=== PATIENT | male | born 1960 | race Caucasian/White ===

== ENCOUNTER 2018-09-07 14:54 | Outpatient (CLI) | payer OTHER | END 2018-09-07 14:55 | disposition home or self-care (01) | LOC: RT.S 14:54 | PROVIDERS: ATTEND Physician Assistant | DX: I10 Essential (primary) hypertension (principal); R00.8 Other abnormalities of heart beat | CPT/HCPCS: 93005 ==

== ENCOUNTER 2021-08-31 08:17 | Outpatient (CLI) | payer OTHER | END 2021-08-31 08:18 | disposition critical access hospital (66) | LOC: EMS 08:17 | DX: U07.1 COVID-19 (principal) | CPT/HCPCS: A0425; A0427 ==

== ENCOUNTER 2021-08-31 08:42 | Inpatient (IN) | payer OTHER ==
[2021-08-31] MEDS ORDERED: SODIUM CHLORIDE 0.9% 1,000 ML IV STA (09:01)
[2021-08-31] MEDS ORDERED: ALBUTEROL 1 PUFF INH STA (09:01)
--- NOTE | 2021-08-31 09:04 | ED Physician Documentation ---
History of Present Illness - Stated complaint Stated Complaint: RESP DISTRESS/C+ - Chief complaint Chief Complaint: Resp - History obtained from History obtained from: Patient, EMS - Additonal information Additional information: Patient comes emergency department chief complaint of shortness of breath and hypoxia at home. Patient was diagnosed with Covid 4 days ago and has been becoming increasingly symptomatic since. He states he developed a cough over the weekend and that his shortness of breath is worse today. He has a home pulse oximeter and has been monitoring his oxygen saturation. It is gotten lower lower area patient finally became concerned and called 911. Medics report that when they got there, the patient's room air sat was 80%. He was very responsive to oxygen, however, and on a nonrebreather mask, his come up to the mid to upper 90s. Patient states he is not vaccinated. He is willing to get monoclonal antibodies, oxygen, and fluids but does not want intubation or remd esivir. Patient states his only other medical problem is hypertension. No other complaints at this time. Review of Systems Ten Systems: 10 systems reviewed and negative Constitutional: reports: Chills, Myalgias, Fatigue. denies: Fever Eyes: reports: Reviewed and negative Ears: reports: Reviewed and negative Nose: reports: Reviewed and negative Throat: reports: Reviewed and negative Cardiac: reports: Reviewed and negative Respiratory: reports: Dyspnea, Cough GI: reports: Reviewed and negative : reports: Reviewed and negative Skin: reports: Reviewed and negative Musculoskeletal: reports: Reviewed and negative Neurologic: reports: Reviewed and negative Psychiatric: reports: Reviewed and negative Endocrine: reports: Reviewed and negative Immunocompromised: reports: Reviewed and negative PD PAST MEDICAL HISTORY - Present Medications Home Medications: Ambulatory Orders Medication Instructions Recorded Confirmed Albuterol 3 ml INH Q4H PRN 08/31/21 Benzonatate [Tessalon] 100 mg PO TID PRN 08/31/21 Budesonide [Pulmicort] 2 ml INH BID PRN 08/31/21 - Allergies Allergies/Adverse Reactions: Allergies Allergy/AdvReac Type Severity Reaction Status Date / Time No Known Drug Allergies Allergy Verified 08/31/21 09:02 PD ED PE NORMAL - Vitals Vital signs reviewed: Yes - General General: Alert and oriented X 3, No acute distress, Well developed/nourished - HEENT HEENT: Atraumatic, PERRL, EOMI, Moist mucous membranes - Neck Neck: Supple, no meningeal sign - Cardiac Cardiac: RRR, No murmur, Strong equal pulses - Respiratory Respiratory: No respiratory distress, Clear bilaterally - Abdomen Abdomen: Soft, Non tender, Non distended - Derm Derm: Normal color, Warm and dry, No rash - Extremities Extremities: No deformity, No edema - Neuro Neuro: Alert and oriented X 3, production sorter 2-12 intact, Normal speech, Other (grossly normal) - Psych Psych: Normal mood, Normal affect Results - Vitals Vitals: Oxygen O2 Source Non-rebreather mask Oxygen Flow Rate 15 - Labs Labs: Laboratory Tests 08/31/21 08/31/21 08/31/21 09:12 10:33 10:33 WBC 9.1 RBC 4.83 Hgb 14.1 Hct 41.9 L MCV 86.7 MCH 29.2 MCHC 33.7 RDW 13.1 Plt Count 231 MPV 10.6 Neut # (Auto) 8.1 H Lymph # (Auto) 0.4 L [place] # (Auto) 0.5 Eos # (Auto) 0.0 Baso # (Auto) 0.0 Absolute Nucleated RBC 0.00 Nucleated RBC % 0.0 Manual Slide Review Indicated PT INR Sodium 133 L Potassium 4.1 Chloride 94 L Carbon Dioxide 28 Anion Gap 11.0 BUN 17 Creatinine 0.8 Estimated GFR (MDRD) 98 Glucose 140 H Calcium 8.7 Total Bilirubin 0.9 AST 36 ALT 36 Alkaline Phosphatase 64 Total Protein 7.2 Albumin 3.7 Globulin 3.5 Albumin/Globulin Ratio 1.1 Lipase 59 H Nasal Adenovirus (PCR) NOT DETECTED Nasal B. parapertussis DNA (PCR) NOT DETECTED Nasal Coronavir 229E PCR NOT DETECTED Nasal Coronavir HKU1 PCR NOT DETECTED Nasal Coronavir NL63 PCR NOT DETECTED Nasal Coronavir OC43 PCR NOT DETECTED Nasal Enterovir/Rhinovir PCR NOT DETECTED Nasal Influenza B PCR NOT DETECTED Nasal Influenza A PCR NOT DETECTED Nasal Parainfluen 1 PCR NOT DETECTED Nasal Parainfluen 2 PCR NOT DETECTED Nasal Parainfluen 3 PCR NOT DETECTED Nasal Parainfluen 4 PCR NOT DETECTED Nasal RSV (PCR) NOT DETECTED Nasal B.pertussis DNA PCR NOT DETECTED Nasal C.pneumoniae (PCR) NOT DETECTED Amanuel Human Metapneumo PCR NOT DETECTED Nasal M.pneumoniae (PCR) NOT DETECTED Nasal SARS-CoV-2 (PCR) DETECTED A 08/31/21 10:33 WBC RBC Hgb Hct MCV MCH MCHC RDW Plt Count MPV Neut # (Auto) Lymph # (Auto) [place] # (Auto) Eos # (Auto) Baso # (Auto) Absolute Nucleated RBC Nucleated RBC % Manual Slide Review PT 13.1 H INR 1.2 Sodium Potassium Chloride Carbon Dioxide Anion Gap BUN Creatinine Estimated GFR (MDRD) Glucose Calcium Total Bilirubin AST ALT Alkaline Phosphatase Total Protein Albumin Globulin Albumin/Globulin Ratio Lipase Nasal Adenovirus (PCR) Nasal B. parapertussis DNA (PCR) Nasal Coronavir 229E PCR Nasal Coronavir HKU1 PCR Nasal Coronavir NL63 PCR Nasal Coronavir OC43 PCR Nasal Enterovir/Rhinovir PCR Nasal Influenza B PCR Nasal Influenza A PCR Nasal Parainfluen 1 PCR Nasal Parainfluen 2 PCR Nasal Parainfluen 3 PCR Nasal Parainfluen 4 PCR Nasal RSV (PCR) Nasal B.pertussis DNA PCR Nasal C.pneumoniae (PCR) Amanuel Human Metapneumo PCR Nasal M.pneumoniae (PCR) Nasal SARS-CoV-2 (PCR) PD MEDICAL DECISION MAKING - ED course Complexity details: reviewed results, re-evaluated patient, considered differential, d/w patient ED course: The patient looked surprisingly well for the fact that he was requiring 100% oxygen to keep his oxygen saturation in the low to mid 90s. Despite this, however, even taking the oxygen off to give the pt 4 puffs of albuterol, pt became immediately dyspneic and O2 sats dropped to low 80's. He was given a dose of Decadron in the ED. He was worked up with chest x-ray, respiratory PCR and labs. PCR was positive for SARScovi2. CXR showed diffuse infiltrates, most likely related to the covid. Doses of antibiotics were added to cover potential bacterial superinfection. I discussed the case with Dr. Paz, who agreed to admit the pt to his service. Departure - Departure Disposition: 66 [facility] DC/Xfer Clinical Impression: COVID-19, Hypoxia Condition: Serious Discharge Date/Time: 08/31/21 12:45
[2021-08-31] MEDS ORDERED: DEXAMETHASONE 10 MG/ML VIAL IV STA (09:06)
--- NOTE | 2021-08-31 09:36 | XRAY Report ---
PROCEDURE: Chest 1 View X-Ray INDICATIONS: Covid, hypoxia/shortness of breath TECHNIQUE: One view of the chest was acquired. COMPARISON: September 17, 2023 FINDINGS: SUPPORT DEVICES: None. LUNG/PLEURA: Moderate left and mild right, predominantly peripheral peripheral airspace opacities are seen with low lung volumes. No pleural effusion or pneumothorax. MEDIASTINUM: Prominence of the cardiac silhouette, partially exaggerated by technique. BONES/SOFT TISSUES: No acute abnormality. IMPRESSION: 1.Bilateral, predominantly peripheral airspace opacities, most consistent with an atypical/viral infe ctious process. Reviewed by: Wilton Gupta MD on 08/31/2021 9:35 AM PDT Approved by: Wilton Gupta MD on 08/31/2021 9:35 AM PDT Station ID: [id number]
[2021-08-31] MEDS ORDERED: AZITHROMYCIN INJ 500 MG in SODIUM CHLORIDE 0.9% 250 ML IV STA (10:17)
[2021-08-31] MEDS ORDERED: cefTRIAXone 2 GM in SODIUM CHLORIDE 0.9% MINIBAG 100 ML IV STA (10:17)
[2021-08-31 10:38] LABS: BASOPHILS % (AUTO) 0.1 %; HCT - HEMATOCRIT 41.9 % (42.0-52.0); HGB - HEMOGLOBIN 14.1 g/dL (14.0-18.0); LYMPHOCYTES # (AUTO) 0.4 10^3/uL (1.5-3.5); LYMPHOCYTES % (AUTO) 4.6 %; MEAN CORPUSCULAR HEMOGLOBIN 29.2 pg (27.0-31.0); MEAN CORPUSCULAR HGB CONC 33.7 g/dL (32.0-36.0); MEAN CORPUSCULAR VOLUME 86.7 fL (80.0-94.0); MEAN PLATELET VOLUME 10.6 fL (7.4-11.4); MONOCYTES # (AUTO) 0.5 10^3/uL (0.0-1.0); MONOCYTES % (AUTO) 5.5 %; NEUTROPHILS # (AUTO) 8.1 10^3/uL (1.5-6.6); NEUTROPHILS % (AUTO) 88.8 %; PLT - PLATELET COUNT 231 10^3/uL (130-450); RED BLOOD COUNT 4.83 10^6/uL (4.70-6.10); RED CELL DISTRIBUTION WIDTH 13.1 % (12.0-15.0); WHITE BLOOD COUNT 9.1 x10^3/uL (4.8-10.8)
[2021-08-31 10:40] LABS: SLIDE REVIEW? Indicated
[2021-08-31 10:47] LABS: INR 1.2 (0.8-1.2); PT - PROTHROMBIN TIME 13.1 secs (9.9-12.6)
[2021-08-31 10:55] LABS: CORONAVIRUS 229E-RESP PCR NOT DETECTED; CORONAVIRUS HKU1-RESP PCR NOT DETECTED; CORONAVIRUS NL63-RESP PCR NOT DETECTED; CORONAVIRUS OC43-RESP PCR NOT DETECTED; HUMAN METAPNEUMOVIRUS NOT DETECTED; INFLUENZA A- RESP PCR PANEL NOT DETECTED; INFLUENZA B - RESP PCR PANEL NOT DETECTED; PARAINFLUENZA VIRUS 1 NOT DETECTED; PARAINFLUENZA VIRUS 2 NOT DETECTED; PARAINFLUENZA VIRUS 3 NOT DETECTED; PARAINFLUENZA VIRUS 4 NOT DETECTED; RHINOVIRUS/ENTEROVIRUS NOT DETECTED; RSV- RESP PCR PANEL NOT DETECTED; SARS-CoV-2 -RESP PCR PANEL DETECTED
[2021-08-31 10:56] LABS: B. PARAPERTUSSIS- RESP PCR PAN NOT DETECTED; B. PERTUSSIS- RESP PCR PANEL NOT DETECTED; C. PNEUMONIAE- RESP PCR PANEL NOT DETECTED; M. PNEUMONIAE- RESP PCR PANEL NOT DETECTED
[2021-08-31 11:03] LABS: ALBUMIN 3.7 g/dL (3.2-5.5); ALBUMIN/GLOBULIN RATIO 1.1 (1.0-2.2); BILIRUBIN,TOTAL 0.9 mg/dL (0.2-1.0); CALCIUM 8.7 mg/dL (8.5-10.3); CREATININE 0.8 mg/dL (0.6-1.2); POTASSIUM 4.1 mmol/L (3.5-5.0); TOTAL PROTEIN 7.2 g/dL (6.7-8.2)
[2021-08-31] MEDS ORDERED: ONDANSETRON 4 MG/2 ML VIAL IVP PRN (11:33)
--- NOTE | 2021-08-31 11:43 | HISTORY & PHYSICAL EXAMINATION ---
Chief Complaint - Chief Complaint Chief Complaint: dyspnea and hypoxia History of Present Illness - Admitted From Admitted From:: [facility] ED - History Obtained From Records Reviewed: yes History obtained from: patient - History of Present Illness HPI Comment/Other: Patient is a 61-year-old male with medical history significant for hypertension who presented to the ED with complaint of dyspnea and hypoxia. He was diagnosed with Covid 19 4 days ago and has been managing at home in this time. However today he became significantly dyspneic and hypoxic with his oxygen saturation dropping into the 80s on room air. His became concerned and so EMS was called. Upon arrival of the patient's oxygen saturation was 80% on room air. He required a nonrebreather mask for his oxygen to come up to the mid 90s. At bedside he denies chest pain but reports dyspnea. He denies abdominal pain, nausea, vomiting. He had been experiencing a low-grade temperature at home. He is unvaccinated. History - Past Medical History Cardiovascular: reports: Hypertension - Past Surgical History General: reports: Colonoscopy Ortho: reports: Knee replacement (bilateral) - Family & Social History Family History Comment/Other: Patient reports a sister who from throat cancer. Another sister from ALS. A brother who from leukemia and another brother from heart disease. He is the 12th of 13 children. Living arrangement: At home Living Situation: With spouse/s.o. Social History Notes: Patient lives home with his . He drinks occasionally. He does not consume tobacco or recreational substances. - POLST POLST Status: Full Code Meds/Allgy - Home Medications Home Medications: Ambulatory Orders Medication Instructions Recorded Confirmed Albuterol 3 ml INH Q4H PRN 08/31/21 Benzonatate [Tessalon] 100 mg PO TID PRN 08/31/21 Budesonide [Pulmicort] 2 ml INH BID PRN 08/31/21 - Allergies Allergies/Adverse Reactions: Allergies Allergy/AdvReac Type Severity Reaction Status Date / Time No Known Drug Allergies Allergy Verified 08/31/21 09:02 Review of Systems - Constitutional Constitutional: reports: Fatigue, Fever, Chills, Malaise. denies: Weakness, Poor appetite, Diaphoresis - Eyes Eyes: denies: Pain, Dipolpia - Ears, Nose & Throat Ears, Nose & Throat: denies: Ear pain - Cardiovascular Cariovascular: denies: Irregular heart rate, Palpitations, Chest pain, Edema, Lightheadedness - Respiratory Respiratory: reports: Cough, SOB at rest, SOB with exertion. denies: Sputum production, Wheezing - Gastrointestinal Gastrointestinal: denies: Abdominal pain, Abdominal distention, Constipation, Diarrhea, Nausea, Vomiting - Genitourinary Genitourinary: denies: Dysuria, Frequency, Urgency, Hematuria, Incontinence - Musculoskeletal Musculoskeletal: denies: Muscle pain, Back pain, Muscle aches - Integumentary Integumentary: denies: Rash, Pruritis, Lesions, Dryness, Lumps, Acne - Neurological Neurological: denies: General weakness, Focal weakness, Headache - Psychiatric Psychiatric: denies: Depression, Anxiety, Suicidal - Endocrine Endocrine: denies: Polyuria, Polydypsia - Hematologic/Lymphatic Hematologic/Lymphatic: denies: Anemia, Bruising, Petechiae Prior Level of Functionality: Patient is normally independent of activities of daily living. Exam - Vital Signs Vital Signs: Vital Signs x48h Temp Pulse Resp BP Pulse Ox 08/31/21 11:30 91 17 143/86 H 93 08/31/21 11:16 94 22 137/86 H 92 08/31/21 11:00 94 26 H 134/96 H 86 L 08/31/21 10:30 93 24 141/90 H 92 08/31/21 10:04 106 H 22 140/80 H 90 L 08/31/21 09:32 99 24 140/83 H 92 08/31/21 09:20 94 16 08/31/21 08:54 37.0 C 95 14 153/84 H 94 - Physical Exam General Appearance: positive: Alert, Moderate distress (respiratory distress) Eyes Bilateral: positive: PERRL, EOMI ENT: positive: No signs of dehydration Neck: positive: No JVD, Trachea midline Respiratory: positive: Chest non-tender, Other (bilateral crackles) Cardiovascular: positive: Regular rate & rhythm, No murmur Abdomen: positive: Non-tender, No organomegaly, Nml bowel sounds, No distention. negative: Guarding, Rebound Back: positive: Nml inspection Skin: positive: Color nml, No rash, Warm, Dry Extremities: positive: Non-tender, Full ROM, Nml appearance, No pedal edema Neurologic/Psychiatric: positive: Oriented x3, Mood/affect nml Conclusion/Plan - Problem List (1) Acute respiratory failure with hypoxia Conclusion/Plan: Secondary to COVID19 pneumonia Patient is currently on a nonrebreather mask with Oxygen Saturation at 92% Patient declined remdesivir. Dexamethasone 6 mg IV daily x9 more days WBC 9.1. Patient afebrile. We will hold off on antibiotics for now (2) Pneumonia due to COVID-19 virus Conclusion/Plan: Patient is currently on a nonrebreather mask with Oxygen Saturation at 92% Patient declined remdesivir. Dexamethasone 6 mg IV daily x9 more days WBC 9.1. Patient afebrile. We will hold off on antibiotics for now (3) Hypertension Conclusion/Plan: Hydralazine prn - Lab Results Fish Bones: 08/31/21 10:33 08/31/21 10:33 Core Measures - Anticipated LOS I expect patient to be DC'd or transferred within 96 hours.: Yes - DVT/VTE - Prophylaxis VTE/DVT Device ordered at admit?: Yes VTE/DVT Prophylaxis med ordered at admit?: Yes
[2021-08-31] MEDS: ACETAMINOPHEN 325 MG TABLET PO PRN (14:31)
[2021-08-31] MEDS: ALBUTEROL 1 PUFF INH SCH ×2 (15:10→18:10)
[2021-08-31] MEDS ORDERED: hydrALAZINE INJ 20 MG/ML VIAL IVP PRN (16:14)
[2021-08-31] MEDS: SODIUM CHLORIDE FLUSH 0.9% 10 ML SYRINGE IVP SCH (20:22)
[2021-09-01] MEDS: SODIUM CHLORIDE FLUSH 0.9% 10 ML SYRINGE IVP SCH ×4 (00:05→19:46)
[2021-09-01] MEDS ORDERED: ZOLPIDEM 5 MG TABLET PO PRN (00:50)
[2021-09-01] MEDS: ALBUTEROL 1 PUFF INH SCH ×2 (05:36→11:13)
[2021-09-01] MEDS: ACETAMINOPHEN 325 MG TABLET PO PRN (05:47)
[2021-09-01] MEDS ORDERED: MORPHINE 2 MG/ML CARPUJECT IVP ONE (06:04)
[2021-09-01 06:13] LABS: BASOPHILS % (AUTO) 0.2 %; HCT - HEMATOCRIT 42.5 % (42.0-52.0); HGB - HEMOGLOBIN 14.4 g/dL (14.0-18.0); LYMPHOCYTES # (AUTO) 0.8 10^3/uL (1.5-3.5); LYMPHOCYTES % (AUTO) 4.8 %; MEAN CORPUSCULAR HEMOGLOBIN 29.2 pg (27.0-31.0); MEAN CORPUSCULAR HGB CONC 33.9 g/dL (32.0-36.0); MEAN CORPUSCULAR VOLUME 86.2 fL (80.0-94.0); MEAN PLATELET VOLUME 10.6 fL (7.4-11.4); MONOCYTES # (AUTO) 0.9 10^3/uL (0.0-1.0); MONOCYTES % (AUTO) 5.4 %; NEUTROPHILS # (AUTO) 14.7 10^3/uL (1.5-6.6); NEUTROPHILS % (AUTO) 88.5 %; PLT - PLATELET COUNT 272 10^3/uL (130-450); RED BLOOD COUNT 4.93 10^6/uL (4.70-6.10); WHITE BLOOD COUNT 16.6 x10^3/uL (4.8-10.8)
[2021-09-01] MEDS ORDERED: MORPHINE 2 MG/ML CARPUJECT ONE (06:13)
[2021-09-01 06:21] LABS: CALCIUM 8.8 mg/dL (8.5-10.3); CREATININE 0.8 mg/dL (0.6-1.2); POTASSIUM 4.2 mmol/L (3.5-5.0)
[2021-09-01] MEDS ORDERED: MORPHINE 2 MG/ML CARPUJECT IVP SCH (07:00)
[2021-09-01] MEDS: AZITHROMYCIN INJ 500 MG in SODIUM CHLORIDE 0.9% 250 ML IV SCH (09:27)
[2021-09-01] MEDS: ENOXAPARIN 40 MG/0.4 ML SYRINGE SUBQ SCH (09:27)
[2021-09-01] MEDS: DEXAMETHASONE 4 MG/ML VIAL IVP SCH (09:28)
[2021-09-01] MEDS: SODIUM CHLORIDE FLUSH 0.9% 10 ML SYRINGE IVP PRN (10:39)
[2021-09-01] MEDS: LORazepam 2 MG/ML VIAL IVP PRN (10:39)
[2021-09-01] MEDS: cefTRIAXone 1 GM in SODIUM CHLORIDE 0.9% MINIBAG 100 ML IV SCH (10:53)
--- NOTE | 2021-09-01 15:50 | PROVIDER PROGRESS NOTE ---
Assessment/Plan - Problem List (1) Acute respiratory failure with hypoxia Assessment/Plan: Secondary to COVID-19 pneumonia. Patient's clinical status worsened overnight. He went from requiring 15 L of oxygen and nonrebreather to requiring 45 L/min on the high flow nasal cannula. This was not an FiO2 of 100%. With this the patient's oxygen saturation was between 89 and 92%. Patient has significant crackles bilaterally Patient is on dexamethasone 12/17 Patient's white blood cell count today was 16.6. As a result Rocephin and azithromycin were continued. Rocephin 12/12, azithromycin 2/. Patient declined remdesivir. If patient's clinical condition worsens, will transfer him to the ICU. His was on the phone at the time of my visit/exam. I brought up the topic of the patient's CODE STATUS to which to maintain that they do not want the patient intubated. On further inquiry the reason is because they have heard that most people who go on mechanical ventilation . I try to highlight that the population is already skewed because people requiring vent critically sick. This did not change their opinion. The topic of CODE STATUS was left to be revisited if patient's clinical condition further deteriorates. At this point they are agreeable to a Limited intervention with CPR but no intubation His also requested that the patient be transferred to [facility]. I explained that this is currently not possible for several reasons. First being that hospitals in the general area are at very high capacities and have been unable to accept transfers for several days now. Second, the patient's insurance is [employer], which requires any potential transfer to be pre-approved. Upon presenting the case to [employer] they stated that there is a list of people awaiting transfers. The patient will not go on the list given because he does not wish to be intubated if indicated. Currently treatment options have not been exhausted at [facility]. The patient's requested administration of ivermectin. I declined doing so because it is not the current standard of practice and is also not carried at our facility. Next she requested administration of monoclonal antibodies which cannot be done because it is only provided to patient in the outpatient setting. (2) Pneumonia due to COVID-19 virus Assessment/Plan: Patient's clinical status worsened overnight. He went from requiring 15 L of oxygen and nonrebreather to requiring 45 L/min on the high flow nasal cannula. This was not an FiO2 of 100%. With this the patient's oxygen saturation was between 89 and 92%. Patient has significant crackles bilaterally Patient is on dexamethasone 2/ Patient's white blood cell count today was 16.6. As a result Rocephin and azithromycin were continued. Rocephin 2/5, azithromycin 2/3. Patient declined remdesivir. If patient's clinical condition worsens, will transfer him to the ICU. (3) Hypertension Assessment/Plan: Hydralazine ordered prn - Current Meds Current Meds: Current Medications Generic Name Dose Route Start Last Admin Trade Name Freq PRN Reason Stop Dose Admin Acetaminophen 650 mg 08/31/21 11:33 09/01/21 05:47 Acetaminophen 325 Mg Tablet PO 650 mg Q4HR PRN Administration Pain 1 to 4 Dexamethasone 6 mg 09/01/21 09:00 09/01/21 09:28 Dexamethasone 4 Mg/Ml Vial IVP 09/09/21 09:01 6 mg DAILY LUCIANO Administration Enoxaparin Sodium 40 mg 09/01/21 09:00 09/01/21 09:27 Enoxaparin 40 Mg/0.4 Ml Syringe SUBQ 40 mg DAILY LUCIANO Administration Azithromycin 500 mg/ Sodium 250 mls @ 250 mls/hr 09/01/21 09:00 09/01/21 10:57 Chloride IV 09/02/21 09:59 Infused DAILY LUCIANO Infusion Ceftriaxone Sodium 1 gm/ 100 mls @ 200 mls/hr 09/01/21 09:00 09/01/21 11:30 Sodium Chloride IV 09/04/21 09:29 Infused DAILY LUCIANO Infusion Lorazepam 0.5 mg 09/01/21 08:21 09/01/21 10:39 Lorazepam 2 Mg/Ml Vial IVP 0.5 mg Q6H PRN Administration Anxiety Sodium Chloride 10 ml 08/31/21 11:33 09/01/21 10:39 Sodium Chloride Flush 0.9% 10 Ml Syringe IVP 10 ml PRN PRN Administration NEEDED PER PROVIDER ORDERS Sodium Chloride 10 ml 08/31/21 17:00 09/01/21 09:29 Sodium Chloride Flush 0.9% 10 Ml Syringe IVP 10 ml 0100,0900,1700 LUCIANO Administration - Lab Result Fish Bone Diagrams: 09/01/21 06:00 09/01/21 06:00 - Additional Planning My Orders: My Active Orders 08/31/21 16:14 hydrALAZINE INJ [Apresoline Inj] 10 mg IVP Q6H PRN 08/31/21 17:00 Sodium Chloride Flush 0.9% [Normal Saline Flush 0.9%] 10 ml IVP 0100,0900,1700 08/31/21 18:11 Nebulizer/MDI Tx. [RC] .Q4 09/01/21 08:21 LORazepam INJ [Ativan Inj (Vial)] 0.5 mg IVP Q6H PRN 09/01/21 09:00 Azithromycin Inj [Zithromax Inj] 500 mg Sodium Chloride 0.9% [Normal Saline 0.9%] 250 ml IV DAILY Enoxaparin [Lovenox] 40 mg SUBQ DAILY cefTRIAXone [Rocephin] 1 gm Sodium Chloride 0.9% Minibag [Normal Saline 0.9% Minibag] 100 ml IV DAILY dexAMETHasone [Decadron] 6 mg IVP DAILY 09/02/21 05:00 BMP - BASIC METABOLIC PANEL [CHEM] DAILYLAB CBC - COMP BLD CT W/AUTO DIFF [HEME] DAILYLAB 09/03/21 05:00 BMP - BASIC METABOLIC PANEL [CHEM] DAILYLAB CBC - COMP BLD CT W/AUTO DIFF [HEME] DAILYLAB 09/04/21 05:00 BMP - BASIC METABOLIC PANEL [CHEM] DAILYLAB CBC - COMP BLD CT W/AUTO DIFF [HEME] DAILYLAB 09/05/21 05:00 BMP - BASIC METABOLIC PANEL [CHEM] DAILYLAB CBC - COMP BLD CT W/AUTO DIFF [HEME] DAILYLAB 09/06/21 05:00 BMP - BASIC METABOLIC PANEL [CHEM] DAILYLAB CBC - COMP BLD CT W/AUTO DIFF [HEME] DAILYLAB 09/07/21 05:00 BMP - BASIC METABOLIC PANEL [CHEM] DAILYLAB CBC - COMP BLD CT W/AUTO DIFF [HEME] DAILYLAB Subjective - Subjective Patient Reports: Other (Patient's clinical condition took a turn for the worse overnight. He went from 15 L on a nonrebreather to requiring high flow at an FiO2 of 100% flowing at 45 L/min to maintain his oxygen saturation between 89 and 92%. He appeared anxious at the time of exam.) Objective Vital Signs: Vital Signs - 24 hr 08/31/21 08/31/21 08/31/21 16:00 18:12 18:26 Temperature 36.6 C Heart Rate 80 Heart Rate [ 103 H Brachial] Heart Rate [ Monitoring electrodes] Respiratory 26 H 16 Rate Blood Pressure 148/85 H [Right Brachial artery] O2 Saturation 87 L 90 L 08/31/21 08/31/21 08/31/21 20:56 23:41 23:50 Temperature 36.4 C L 36.4 C L Heart Rate Heart Rate [ 109 H 92 Brachial] Heart Rate [ Monitoring electrodes] Respiratory 22 18 22 Rate Blood Pressure 133/78 H 142/85 H [Right Brachial artery] O2 Saturation 91 L 91 L 88 L 09/01/21 09/01/21 09/01/21 01:00 03:00 04:22 Temperature Heart Rate Heart Rate [ 82 Brachial] Heart Rate [ Monitoring electrodes] Respiratory Rate Blood Pressure [Right Brachial artery] O2 Saturation 90 L 90 L 90 L 09/01/21 09/01/21 09/01/21 05:39 05:45 06:25 Temperature Heart Rate 102 H Heart Rate [ 99 97 Brachial] Heart Rate [ Monitoring electrodes] Respiratory 24 18 28 H Rate Blood Pressure 132/88 H [Right Brachial artery] O2 Saturation 87 L 86 L 09/01/21 09/01/21 09/01/21 06:29 06:39 07:20 Temperature 36.9 C 36.4 C L Heart Rate Heart Rate [ 97 100 101 H Brachial] Heart Rate [ Monitoring electrodes] Respiratory 12 15 16 Rate Blood Pressure 126/75 [Right Brachial artery] O2 Saturation 89 L 90 L 90 L 09/01/21 09/01/21 11:14 12:57 Temperature 36.5 C Heart Rate 85 Heart Rate [ 99 Brachial] Heart Rate [ 102 H Monitoring electrodes] Respiratory 22 19 Rate Blood Pressure 138/81 H [Right Brachial artery] O2 Saturation 90 L Oxygen O2 Source HHFNC Oxygen Flow Rate 15 I&O (Last 24 Hrs): Intake and Output Totals x24h 08/30/21 08/31/21 09/01/21 23:59 23:59 23:59 Intake Total 2930 2620 Output Total 1675 2625 Balance 1255 -5 General: Alert, Oriented x3, Moderate distress HEENT: PERRLA, EOMI Neck: Supple, No JVD Neuro: Alert, Oriented Times 3 Cardiovascular: Regular rate, Normal S1, Normal S2 Respiratory: Chest non-tender, Other (Crackles bilaterally, Moderate respiratory distress) Abdomen: Normal bowel sounds, Soft, No tenderness, No masses Extremities: No clubbing, No edema, No tenderness/swelling - Results Results: Laboratory Results WBC 16.6 x10^3/uL (4.8-10.8) H 09/01/21 06:00 RBC 4.93 10^6/uL (4.70-6.10) 09/01/21 06:00 Hgb 14.4 g/dL (14.0-18.0) 09/01/21 06:00 Hct 42.5 % (42.0-52.0) 09/01/21 06:00 MCV 86.2 fL (80.0-94.0) 09/01/21 06:00 MCH 29.2 pg (27.0-31.0) 09/01/21 06:00 MCHC 33.9 g/dL (32.0-36.0) 09/01/21 06:00 RDW 13.0 % (12.0-15.0) 09/01/21 06:00 Plt Count 272 10^3/uL (130-450) 09/01/21 06:00 MPV 10.6 fL (7.4-11.4) 09/01/21 06:00 Neut # (Auto) 14.7 10^3/uL (1.5-6.6) H 09/01/21 06:00 Lymph # (Auto) 0.8 10^3/uL (1.5-3.5) L 09/01/21 06:00 [place] # (Auto) 0.9 10^3/uL (0.0-1.0) 09/01/21 06:00 Eos # (Auto) 0.0 10^3/uL (0.0-0.7) 09/01/21 06:00 Baso # (Auto) 0.0 10^3/uL (0.0-0.1) 09/01/21 06:00 Absolute Nucleated RBC 0.00 x10^3/uL 09/01/21 06:00 Nucleated RBC % 0.0 /100WBC 09/01/21 06:00 Manual Slide Review Indicated 08/31/21 10:33 PT 13.1 secs (9.9-12.6) H 08/31/21 10:33 INR 1.2 (0.8-1.2) 08/31/21 10:33 Sodium 137 mmol/L (135-145) 09/01/21 06:00 Potassium 4.2 mmol/L (3.5-5.0) 09/01/21 06:00 Chloride 98 mmol/L (101-111) L 09/01/21 06:00 Carbon Dioxide 28 mmol/L (21-32) 09/01/21 06:00 Anion Gap 11.0 (6-13) 09/01/21 06:00 BUN 18 mg/dL (6-20) 09/01/21 06:00 Creatinine 0.8 mg/dL (0.6-1.2) 09/01/21 06:00 Estimated GFR (MDRD) 98 (>89) 09/01/21 06:00 Glucose 133 mg/dL (70-100) H 09/01/21 06:00 Calcium 8.8 mg/dL (8.5-10.3) 09/01/21 06:00 Total Bilirubin 0.9 mg/dL (0.2-1.0) 08/31/21 10:33 AST 36 IU/L (10-42) 08/31/21 10:33 ALT 36 IU/L (10-60) 08/31/21 10:33 Alkaline Phosphatase 64 IU/L (42-121) 08/31/21 10:33 Total Protein 7.2 g/dL (6.7-8.2) 08/31/21 10:33 Albumin 3.7 g/dL (3.2-5.5) 08/31/21 10:33 Globulin 3.5 g/dL (2.1-4.2) 08/31/21 10:33 Albumin/Globulin Ratio 1.1 (1.0-2.2) 08/31/21 10:33 Lipase 59 U/L (22-51) H 08/31/21 10:33 Nasal Adenovirus (PCR) NOT DETECTED 08/31/21 09:12 Nasal B. parapertussis DNA (PCR) NOT DETECTED 08/31/21 09:12 Nasal Coronavir 229E PCR NOT DETECTED 08/31/21 09:12 Nasal Coronavir HKU1 PCR NOT DETECTED 08/31/21 09:12 Nasal Coronavir NL63 PCR NOT DETECTED 08/31/21 09:12 Nasal Coronavir OC43 PCR NOT DETECTED 08/31/21 09:12 Nasal Enterovir/Rhinovir PCR NOT DETECTED 08/31/21 09:12 Nasal Influenza B PCR NOT DETECTED 08/31/21 09:12 Nasal Influenza A PCR NOT DETECTED 08/31/21 09:12 Nasal Parainfluen 1 PCR NOT DETECTED 08/31/21 09:12 Nasal Parainfluen 2 PCR NOT DETECTED 08/31/21 09:12 Nasal Parainfluen 3 PCR NOT DETECTED 08/31/21 09:12 Nasal Parainfluen 4 PCR NOT DETECTED 08/31/21 09:12 Nasal RSV (PCR) NOT DETECTED 08/31/21 09:12 Nasal B.pertussis DNA PCR NOT DETECTED 08/31/21 09:12 Nasal C.pneumoniae (PCR) NOT DETECTED 08/31/21 09:12 Amanuel Human Metapneumo PCR NOT DETECTED 08/31/21 09:12 Nasal M.pneumoniae (PCR) NOT DETECTED 08/31/21 09:12 Nasal SARS-CoV-2 (PCR) DETECTED A 08/31/21 09:12 ABX Reporting Has patient been on IV antibiotics over the past 48 hours?: Yes
[2021-09-01] MEDS: MORPHINE 2 MG/ML CARPUJECT IVP PRN ×2 (17:54→21:51)
[2021-09-01] MEDS ORDERED: FUROSEMIDE 40 MG/4 ML VIAL IVP STA (18:50)
[2021-09-01] MEDS ORDERED: SODIUM CHLORIDE FLUSH 0.9% 10 ML SYRINGE IVP PRN (18:51)
[2021-09-02] MEDS: LORazepam 2 MG/ML VIAL IVP PRN (01:45)
[2021-09-02] MEDS: SODIUM CHLORIDE FLUSH 0.9% 10 ML SYRINGE IVP SCH ×8 (01:46→20:10)
[2021-09-02] MEDS: MORPHINE 2 MG/ML CARPUJECT IVP PRN ×5 (02:43→20:09)
[2021-09-02] MEDS: SODIUM CHLORIDE FLUSH 0.9% 10 ML SYRINGE IVP PRN (02:43)
[2021-09-02 04:56] LABS: BASOPHILS % (AUTO) 0.2 %; HCT - HEMATOCRIT 41.6 % (42.0-52.0); LYMPHOCYTES # (AUTO) 0.8 10^3/uL (1.5-3.5); LYMPHOCYTES % (AUTO) 5.3 %; MEAN CORPUSCULAR HGB CONC 33.7 g/dL (32.0-36.0); MEAN CORPUSCULAR VOLUME 86.1 fL (80.0-94.0); MEAN PLATELET VOLUME 10.6 fL (7.4-11.4); MONOCYTES # (AUTO) 0.8 10^3/uL (0.0-1.0); MONOCYTES % (AUTO) 5.6 %; NEUTROPHILS # (AUTO) 12.8 10^3/uL (1.5-6.6); NEUTROPHILS % (AUTO) 86.1 %; PLT - PLATELET COUNT 324 10^3/uL (130-450); RED BLOOD COUNT 4.83 10^6/uL (4.70-6.10); RED CELL DISTRIBUTION WIDTH 13.1 % (12.0-15.0); WHITE BLOOD COUNT 14.8 x10^3/uL (4.8-10.8)
[2021-09-02 05:04] LABS: CALCIUM 8.6 mg/dL (8.5-10.3); CREATININE 0.9 mg/dL (0.6-1.2); POTASSIUM 4.1 mmol/L (3.5-5.0)
[2021-09-02 05:38] LABS: MAGNESIUM 2.3 mg/dL (1.7-2.8); PHOSPHORUS 3.9 mg/dL (2.5-4.6)
[2021-09-02 07:25] LABS: ABG PCO2 30 mmHg (34-45); ABG PH 7.55 (7.35-7.45); ABG PO2 74 mmHg (80-100)
[2021-09-02 07:26] LABS: ABG HCO3 25.7 mmol/L (22.0-26.0); ABG OXYGEN SATURATION 95 % (94-98); ABG TCO2 26.6 MMOL/L (21.0-29.0); ALLEN TEST POSITIVE
--- NOTE | 2021-09-02 08:19 | PROVIDER PROGRESS NOTE ---
Assessment/Plan - Problem List (1) Acute respiratory failure with hypoxia Assessment/Plan: Secondary to COVID-19 pneumonia. Patient's oxygen requirement seemed to increase last evening 09/01/2021. As a result he was transferred to the ICU and placed on the BiPAP. His oxygenation was slightly better this morning. ABG done 09/02/2021 showed pH 7.55, PCO2 30, PO2 74, bicarb 25.7. This was on an FiO2 of 100% on BiPAP 12/ Currently his oxygen saturation ranges between 88 and 92% on high flow nasal cannula with an FiO2 of 65% flowing at 40 L. Patient is on dexamethasone 01/14 Patient's white blood cell count today was 14.8. Rocephin 01/09, azithromycin 01/07. Patient declined remdesivir. Upon talking with the patient's today, she expressed that she had discussed with the patient further and he is agreeable to intubation if absolutely necessary. She requested addition of zinc, vitamin C and vitamin D supplements which have been ordered. She inquired about hydroxychloroquine. I explained that it is not part of our hospital practice and that its use is advised against for treatment of COVID- 19. (2) Pneumonia due to COVID-19 virus Assessment/Plan: Patient's oxygen requirement seemed to increase last evening 09/01/2021. As a result he was transferred to the ICU and placed on the BiPAP. His oxygenation was slightly better this morning. ABG done 09/02/2021 showed pH 7.55, PCO2 30, PO2 74, bicarb 25.7. This was on an FiO2 of 100% on BiPAP 10/11 Currently his oxygen saturation ranges between 88 and 92% on high flow nasal cannula with an FiO2 of 65% flowing at 40 L. Patient is on dexamethasone 01/14 Patient's white blood cell count today was 14.8. Rocephin 01/09, azithromycin 01/07. Patient declined remdesivir. Zinc, vitamin C and vitamin D supplements ordered. (3) Hypertension Assessment/Plan: Hydralazine ordered prn - Current Meds Current Meds: Current Medications Generic Name Dose Route Start Last Admin Trade Name Freq PRN Reason Stop Dose Admin Acetaminophen 650 mg 08/31/21 11:33 09/01/21 05:47 Acetaminophen 325 Mg Tablet PO 650 mg Q4HR PRN Administration Pain 1 to 4 Dexamethasone 6 mg 10/26/21 09:00 09/01/21 09:28 Dexamethasone 4 Mg/Ml Vial IVP 09/09/21 09:01 6 mg DAILY LUCIANO Administration Enoxaparin Sodium 40 mg 09/01/21 09:00 09/01/21 09:27 Enoxaparin 40 Mg/0.4 Ml Syringe SUBQ 40 mg DAILY LUCIANO Administration Azithromycin 500 mg/ Sodium 250 mls @ 250 mls/hr 09/01/21 09:00 09/01/21 10:57 Chloride IV 09/02/21 09:59 Infused DAILY LUCIANO Infusion Ceftriaxone Sodium 1 gm/ 100 mls @ 200 mls/hr 09/01/21 09:00 09/01/21 11:30 Sodium Chloride IV 09/04/21 09:29 Infused DAILY LUCIANO Infusion Lorazepam 0.5 mg 09/01/21 08:21 09/02/21 01:45 Lorazepam 2 Mg/Ml Vial IVP 0.5 mg Q6H PRN Administration Anxiety Morphine Sulfate 2 mg 09/01/21 06:58 09/02/21 04:26 Morphine 2 Mg/Ml Carpuject IVP 2 mg Q2HR PRN Administration Dyspnea Sodium Chloride 10 ml 08/31/21 11:33 09/02/21 02:43 Sodium Chloride Flush 0.9% 10 Ml Syringe IVP 10 ml PRN PRN Administration NEEDED PER PROVIDER ORDERS Sodium Chloride 10 ml 08/31/21 17:00 09/02/21 04:26 Sodium Chloride Flush 0.9% 10 Ml Syringe IVP 10 ml 0100,0900,1700 LUCIANO Administration Sodium Chloride 10 ml 09/02/21 01:00 09/02/21 01:46 Sodium Chloride Flush 0.9% 10 Ml Syringe IVP 10 ml 0100,0900,1700 LUCIANO Administration - Lab Result Fish Bone Diagrams: 09/02/21 04:44 09/02/21 04:44 - Additional Planning My Orders: My Active Orders 09/01/21 08:21 LORazepam INJ [Ativan Inj (Vial)] 0.5 mg IVP Q6H PRN 09/01/21 09:00 Azithromycin Inj [Zithromax Inj] 500 mg Sodium Chloride 0.9% [Normal Saline 0.9%] 250 ml IV DAILY Enoxaparin [Lovenox] 40 mg SUBQ DAILY cefTRIAXone [Rocephin] 1 gm Sodium Chloride 0.9% Minibag [Normal Saline 0.9% Minibag] 100 ml IV DAILY dexAMETHasone [Decadron] 6 mg IVP DAILY 09/01/21 18:51 Daily Weight [RC] 0600 IO [RC] Q1HR Initiate Bowel Care Protocol [RC] QSHIFT Initiate ICU Electrolyte Prot. [RC] .protocol Initiate Line Care Protocol [RC] .protocol Initiate Personal Care Protoco [RC] .protocol Sodium Chloride Flush 0.9% [Normal Saline Flush 0.9%] 10 ml IVP PRN PRN 09/02/21 01:00 Sodium Chloride Flush 0.9% [Normal Saline Flush 0.9%] 10 ml IVP 0100,0900,1700 09/03/21 05:00 BMP - BASIC METABOLIC PANEL [CHEM] DAILYLAB CBC - COMP BLD CT W/AUTO DIFF [HEME] DAILYLAB MAGNESIUM [CHEM] DAILYLAB PHOSPHORUS [CHEM] DAILYLAB 09/04/21 05:00 BMP - BASIC METABOLIC PANEL [CHEM] DAILYLAB CBC - COMP BLD CT W/AUTO DIFF [HEME] DAILYLAB 09/05/21 05:00 BMP - BASIC METABOLIC PANEL [CHEM] DAILYLAB CBC - COMP BLD CT W/AUTO DIFF [HEME] DAILYLAB 09/06/21 05:00 BMP - BASIC METABOLIC PANEL [CHEM] DAILYLAB CBC - COMP BLD CT W/AUTO DIFF [HEME] DAILYLAB 09/07/21 05:00 BMP - BASIC METABOLIC PANEL [CHEM] DAILYLAB CBC - COMP BLD CT W/AUTO DIFF [HEME] DAILYLAB Subjective - Subjective Patient Reports: Other (Patient was resting in bed. He appears slightly anxious. There has been no significant change in his breathing today. Mild crackles noticed on auscultation of the lungs.) Objective Vital Signs: Vital Signs - 24 hr 09/01/21 09/01/21 09/01/21 11:14 12:57 17:00 Temperature 36.5 C 36.3 C L Heart Rate 85 Heart Rate [ 99 96 Brachial] Heart Rate [ 102 H Monitoring electrodes] Respiratory 22 19 24 Rate Blood Pressure [Left Brachial artery] Blood Pressure 138/81 H 149/86 H [Right Brachial artery] O2 Saturation 90 L 86 L 09/01/21 09/01/21 09/01/21 20:00 20:22 21:00 Temperature 36.8 C Heart Rate 95 Heart Rate [ Brachial] Heart Rate [ 105 H 97 Monitoring electrodes] Respiratory 21 21 Rate Blood Pressure [Left Brachial artery] Blood Pressure 145/91 H 140/93 H [Right Brachial artery] O2 Saturation 86 L 86 L 09/01/21 09/02/21 09/02/21 23:28 00:04 01:00 Temperature Heart Rate 95 Heart Rate [ Brachial] Heart Rate [ 85 97 Monitoring electrodes] Respiratory 21 23 Rate Blood Pressure [Left Brachial artery] Blood Pressure 137/90 H 133/95 H [Right Brachial artery] O2 Saturation 94 92 09/02/21 09/02/21 09/02/21 02:00 02:19 03:04 Temperature Heart Rate 95 Heart Rate [ Brachial] Heart Rate [ 89 90 Monitoring electrodes] Respiratory 20 21 Rate Blood Pressure [Left Brachial artery] Blood Pressure 130/95 H 121/90 H [Right Brachial artery] O2 Saturation 94 91 L 09/02/21 09/02/21 09/02/21 04:00 05:40 05:58 Temperature 36.4 C L Heart Rate 95 Heart Rate [ Brachial] Heart Rate [ 90 86 Monitoring electrodes] Respiratory 22 20 Rate Blood Pressure 118/87 H 129/89 H [Left Brachial artery] Blood Pressure [Right Brachial artery] O2 Saturation 93 99 09/02/21 07:32 Temperature Heart Rate 96 Heart Rate [ Brachial] Heart Rate [ Monitoring electrodes] Respiratory Rate Blood Pressure [Left Brachial artery] Blood Pressure [Right Brachial artery] O2 Saturation Oxygen O2 Source BIPAP Oxygen Flow Rate 15 I&O (Last 24 Hrs): Intake and Output Totals x24h 08/31/21 09/01/21 09/02/21 23:59 23:59 23:59 Intake Total 2930 2620 300 Output Total 1675 4950 675 Balance 1255 -4510 -375 General: Alert, Oriented x3, Other (Mildly anxious) HEENT: PERRLA, EOMI Neck: Supple, No JVD Neuro: Alert, Oriented Times 3 Cardiovascular: Other (Tachycardia) Respiratory: Chest non-tender, Other (Mild crackles, Mild dyspnea) Abdomen: Normal bowel sounds, Soft, No tenderness Extremities: No cyanosis, No edema Skin: No rashes, No breakdown, No significant lesion - Results Results: Laboratory Results WBC 14.8 x10^3/uL (4.8-10.8) H 09/02/21 04:44 RBC 4.83 10^6/uL (4.70-6.10) 09/02/21 04:44 Hgb 14.0 g/dL (14.0-18.0) 09/02/21 04:44 Hct 41.6 % (42.0-52.0) L 09/02/21 04:44 MCV 86.1 fL (80.0-94.0) 09/02/21 04:44 MCH 29.0 pg (27.0-31.0) 09/02/21 04:44 MCHC 33.7 g/dL (32.0-36.0) 09/02/21 04:44 RDW 13.1 % (12.0-15.0) 09/02/21 04:44 Plt Count 324 10^3/uL (130-450) 09/02/21 04:44 MPV 10.6 fL (7.4-11.4) 09/02/21 04:44 Neut # (Auto) 12.8 10^3/uL (1.5-6.6) H 09/02/21 04:44 Lymph # (Auto) 0.8 10^3/uL (1.5-3.5) L 09/02/21 04:44 Dickinson # (Auto) 0.8 10^3/uL (0.0-1.0) 09/02/21 04:44 Eos # (Auto) 0.0 10^3/uL (0.0-0.7) 09/02/21 04:44 Baso # (Auto) 0.0 10^3/uL (0.0-0.1) 09/02/21 04:44 Absolute Nucleated RBC 0.00 x10^3/uL 09/02/21 04:44 Nucleated RBC % 0.0 /100WBC 09/02/21 04:44 Manual Slide Review Indicated 08/31/21 10:33 PT 13.1 secs (9.9-12.6) H 08/31/21 10:33 INR 1.2 (0.8-1.2) 08/31/21 10:33 Bld Gas Analysis Time 0725 09/02/21 07:15 Sample Site RIGHT RADIAL 09/02/21 07:15 ABG pH 7.55 (7.35-7.45) H 09/02/21 07:15 ABG pCO2 30 mmHg (34-45) L 09/02/21 07:15 ABG pO2 74 mmHg (80-100) L 09/02/21 07:15 ABG HCO3 25.7 mmol/L (22.0-26.0) 09/02/21 07:15 ABG Total CO2 26.6 MMOL/L (21.0-29.0) 09/02/21 07:15 ABG O2 Saturation 95 % (94-98) 09/02/21 07:15 ABG Base Excess 4.0 mmol/L (-2.0-3.0) H 09/02/21 07:15 Denis Test POSITIVE 09/02/21 07:15 O2 Delivery Device BiPAP 09/02/21 07:15 FiO2 100.00 09/02/21 07:15 EPAP 5 cmH2O 09/02/21 07:15 IPAP 12 cmH2O 09/02/21 07:15 Sodium 138 mmol/L (135-145) 09/02/21 04:44 Potassium 4.1 mmol/L (3.5-5.0) 09/02/21 04:44 Chloride 97 mmol/L (101-111) L 09/02/21 04:44 Carbon Dioxide 29 mmol/L (21-32) 09/02/21 04:44 Anion Gap 12.0 (6-13) 09/02/21 04:44 BUN 21 mg/dL (6-20) H 09/02/21 04:44 Creatinine 0.9 mg/dL (0.6-1.2) 09/02/21 04:44 Estimated GFR (MDRD) 85 (>89) L 09/02/21 04:44 Glucose 109 mg/dL (70-100) H 09/02/21 04:44 Calcium 8.6 mg/dL (8.5-10.3) 09/02/21 04:44 Phosphorus 3.9 mg/dL (2.5-4.6) 09/02/21 04:44 Magnesium 2.3 mg/dL (1.7-2.8) 09/02/21 04:44 Total Bilirubin 0.9 mg/dL (0.2-1.0) 08/31/21 10:33 AST 36 IU/L (10-42) 08/31/21 10:33 ALT 36 IU/L (10-60) 08/31/21 10:33 Alkaline Phosphatase 64 IU/L (42-121) 08/31/21 10:33 Total Protein 7.2 g/dL (6.7-8.2) 08/31/21 10:33 Albumin 3.7 g/dL (3.2-5.5) 08/31/21 10:33 Globulin 3.5 g/dL (2.1-4.2) 08/31/21 10:33 Albumin/Globulin Ratio 1.1 (1.0-2.2) 08/31/21 10:33 Lipase 59 U/L (22-51) H 08/31/21 10:33 Nasal Adenovirus (PCR) NOT DETECTED 08/31/21 09:12 Nasal B. parapertussis DNA (PCR) NOT DETECTED 08/31/21 09:12 Nasal Coronavir 229E PCR NOT DETECTED 08/31/21 09:12 Nasal Coronavir HKU1 PCR NOT DETECTED 08/31/21 09:12 Nasal Coronavir NL63 PCR NOT DETECTED 08/31/21 09:12 Nasal Coronavir OC43 PCR NOT DETECTED 08/31/21 09:12 Nasal Enterovir/Rhinovir PCR NOT DETECTED 08/31/21 09:12 Nasal Influenza B PCR NOT DETECTED 08/31/21 09:12 Nasal Influenza A PCR NOT DETECTED 08/31/21 09:12 Nasal Parainfluen 1 PCR NOT DETECTED 08/31/21 09:12 Nasal Parainfluen 2 PCR NOT DETECTED 08/31/21 09:12 Nasal Parainfluen 3 PCR NOT DETECTED 08/31/21 09:12 Nasal Parainfluen 4 PCR NOT DETECTED 08/31/21 09:12 Nasal RSV (PCR) NOT DETECTED 08/31/21 09:12 Nasal Screen MRSA (PCR) NEGATIVE (NEGATIVE) 09/01/21 20:00 Nasal B.pertussis DNA PCR NOT DETECTED 08/31/21 09:12 Nasal C.pneumoniae (PCR) NOT DETECTED 08/31/21 09:12 Amanuel Human Metapneumo PCR NOT DETECTED 08/31/21 09:12 Nasal M.pneumoniae (PCR) NOT DETECTED 08/31/21 09:12 Nasal SARS-CoV-2 (PCR) DETECTED A 08/31/21 09:12 ABX Reporting Has patient been on IV antibiotics over the past 48 hours?: Yes
[2021-09-02] MEDS: cefTRIAXone 1 GM in SODIUM CHLORIDE 0.9% MINIBAG 100 ML IV SCH (08:50)
[2021-09-02] MEDS: ENOXAPARIN 40 MG/0.4 ML SYRINGE SUBQ SCH (08:50)
[2021-09-02] MEDS: AZITHROMYCIN INJ 500 MG in SODIUM CHLORIDE 0.9% 250 ML IV SCH (08:51)
[2021-09-02] MEDS: DEXAMETHASONE 4 MG/ML VIAL IVP SCH (08:51)
[2021-09-03] MEDS: MORPHINE 2 MG/ML CARPUJECT IVP PRN ×2 (00:17→04:39)
[2021-09-03] MEDS: SODIUM CHLORIDE FLUSH 0.9% 10 ML SYRINGE IVP SCH ×6 (00:18→17:00)
[2021-09-03 05:58] LABS: BASOPHILS % (AUTO) 0.2 %; EOSINOPHILS % (AUTO) 0.1 %; HCT - HEMATOCRIT 40.8 % (42.0-52.0); HGB - HEMOGLOBIN 13.6 g/dL (14.0-18.0); LYMPHOCYTES # (AUTO) 1.1 10^3/uL (1.5-3.5); LYMPHOCYTES % (AUTO) 8.8 %; MEAN CORPUSCULAR HGB CONC 33.3 g/dL (32.0-36.0); MEAN PLATELET VOLUME 10.9 fL (7.4-11.4); MONOCYTES # (AUTO) 0.7 10^3/uL (0.0-1.0); MONOCYTES % (AUTO) 5.9 %; NEUTROPHILS # (AUTO) 9.7 10^3/uL (1.5-6.6); NEUTROPHILS % (AUTO) 81.1 %; PLT - PLATELET COUNT 296 10^3/uL (130-450); RED BLOOD COUNT 4.69 10^6/uL (4.70-6.10)
[2021-09-03 06:17] LABS: CALCIUM 8.4 mg/dL (8.5-10.3); CREATININE 0.7 mg/dL (0.6-1.2); MAGNESIUM 2.4 mg/dL (1.7-2.8); PHOSPHORUS 3.9 mg/dL (2.5-4.6)
--- NOTE | 2021-09-03 07:46 | PHARMACY PROGRESS NOTE ---
- Best Possible Medication History Admit Date and Time: 08/31/21 1219 Processed by: Pharmacy Medication History completed: Yes Secondary Source(s): Physician records, Pharmacy records, Insurance records As the person ultimately responsible for medication therapy, providers are able to order a medication from an existing home medication list in [facility] via the "Reconcile Routine" prior to Confirmation of that medication by web support engineer. Such practice is discouraged except when the physician, in their clinical judgment, deems that a medical need exists for a medication without regard to previous use.
--- NOTE | 2021-09-03 08:03 | PROVIDER PROGRESS NOTE ---
Assessment/Plan - Problem List (1) Acute respiratory failure with hypoxia Assessment/Plan: Secondary to COVID-19 pneumonia. Patient is currently on high flow nasal cannula at an FiO2 of 100% flowing at 40 L. His oxygen saturation has been approximately 93%. Patient appears more comfortable today and less anxious. Tachypnea and tachycardia improved/resolved. Dexamethasone 4/10. Patient completed azithromycin yesterday 09/02/2021. Rocephin 4/5 He is on supplemental zinc, vitamin C and vitamin D. Tablets of ivermectin were confiscated from patient's room yesterday afternoon. These have been taken to the pharmacy for safekeeping. (2) Pneumonia due to COVID-19 virus Assessment/Plan: Patient is currently on high flow nasal cannula at an FiO2 of 100% flowing at 40 L. His oxygen saturation has been approximately 93%. Patient appears more comfortable today and less anxious. Tachypnea and tachycardia improved/resolved. Dexamethasone 4/10. Patient completed azithromycin yesterday 09/02/2021. Rocephin 4/5 He is on supplemental zinc, vitamin C and vitamin D. Tablets of ivermectin were confiscated from patient's room yesterday afternoon. These have been taken to the pharmacy for safekeeping. (3) Hypertension Assessment/Plan: Hydralazine ordered prn - Current Meds Current Meds: Current Medications Generic Name Dose Route Start Last Admin Trade Name Freq PRN Reason Stop Dose Admin Acetaminophen 650 mg 08/31/21 11:33 09/01/21 05:47 Acetaminophen 325 Mg Tablet PO 650 mg Q4HR PRN Administration Pain 1 to 4 Dexamethasone 6 mg 09/01/21 09:00 09/02/21 08:51 Dexamethasone 4 Mg/Ml Vial IVP 09/09/21 09:01 6 mg DAILY LUCIANO Administration Enoxaparin Sodium 40 mg 09/01/21 09:00 09/02/21 08:50 Enoxaparin 40 Mg/0.4 Ml Syringe SUBQ 40 mg DAILY LUCIANO Administration Ceftriaxone Sodium 1 gm/ 100 mls @ 200 mls/hr 09/01/21 09:00 09/02/21 09:25 Sodium Chloride IV 09/04/21 09:29 Infused DAILY LUCIANO Infusion Lorazepam 0.5 mg 09/01/21 08:21 09/02/21 01:45 Lorazepam 2 Mg/Ml Vial IVP 0.5 mg Q6H PRN Administration Anxiety Morphine Sulfate 2 mg 09/01/21 06:58 09/03/21 04:39 Morphine 2 Mg/Ml Carpuject IVP 2 mg Q2HR PRN Administration Dyspnea Sodium Chloride 10 ml 08/31/21 11:33 09/02/21 02:43 Sodium Chloride Flush 0.9% 10 Ml Syringe IVP 10 ml PRN PRN Administration NEEDED PER PROVIDER ORDERS Sodium Chloride 10 ml 08/31/21 17:00 09/02/21 20:10 Sodium Chloride Flush 0.9% 10 Ml Syringe IVP 10 ml 0100,0900,1700 LUCIANO Administration Sodium Chloride 10 ml 09/02/21 01:00 09/03/21 04:39 Sodium Chloride Flush 0.9% 10 Ml Syringe IVP 10 ml 0100,0900,1700 LUCIANO Administration - Lab Result Fish Bone Diagrams: 09/03/21 04:39 09/03/21 04:39 - Additional Planning My Orders: My Active Orders 09/03/21 09:00 Ascorbic Acid [Vitamin C] 500 mg PO DAILY Cholecalciferol [Vitamin D3] 5,000 unit PO DAILY FUROSEMIDE INJ 40mg VIAL [LASIX INJ 40 mg VIAL] 40 mg IVP DAILY Zinc Sulfate 220 mg PO DAILY 09/04/21 05:00 BMP - BASIC METABOLIC PANEL [CHEM] DAILYLAB CBC - COMP BLD CT W/AUTO DIFF [HEME] DAILYLAB 09/05/21 05:00 BMP - BASIC METABOLIC PANEL [CHEM] DAILYLAB CBC - COMP BLD CT W/AUTO DIFF [HEME] DAILYLAB 09/06/21 05:00 BMP - BASIC METABOLIC PANEL [CHEM] DAILYLAB CBC - COMP BLD CT W/AUTO DIFF [HEME] DAILYLAB 09/07/21 05:00 BMP - BASIC METABOLIC PANEL [CHEM] DAILYLAB CBC - COMP BLD CT W/AUTO DIFF [HEME] DAILYLAB Subjective - Subjective Patient Reports: Other (Patient appeared more comfortable today his respiratory status appears improved. He was less tachypneic and less tachycardic. His o xygen saturation was 93% on 4 L of high flow nasal cannula at an FiO2 of 100%. He is also less anxious today.) Objective Vital Signs: Vital Signs - 24 hr 09/02/21 09/02/21 09/02/21 09:00 13:00 13:49 Temperature Heart Rate [ 105 H 105 H 93 Monitoring electrodes] Respiratory 22 27 H 25 H Rate Blood Pressure 147/90 H 153/102 H [Left Brachial artery] O2 Saturation 90 L 86 L 93 09/02/21 09/02/21 09/03/21 16:46 20:09 00:00 Temperature 36.7 C 36.8 C Heart Rate [ 94 97 77 Monitoring electrodes] Respiratory 23 20 22 Rate Blood Pressure 145/97 H 149/91 H 116/96 H [Left Brachial artery] O2 Saturation 89 L 92 87 L 09/03/21 05:00 Temperature Heart Rate [ 73 Monitoring electrodes] Respiratory 23 Rate Blood Pressure 157/80 H [Left Brachial artery] O2 Saturation 94 Oxygen O2 Source HHFNC Oxygen Flow Rate 15 I&O (Last 24 Hrs): Intake and Output Totals x24h 09/01/21 09/02/21 09/03/21 23:59 23:59 23:59 Intake Total 2620 4560 150 Output Total 4950 2605 315 Balance -2330 1955 -165 General: Alert, Oriented x3, No acute distress HEENT: PERRLA, EOMI Neck: Supple, No JVD Neuro: Alert, Oriented Times 3 Cardiovascular: Regular rate, Normal S1, Normal S2 Respiratory: Chest non-tender, Breath sounds nml, Other (Mild crackles) Abdomen: Normal bowel sounds, Soft, No tenderness, No masses Extremities: No clubbing, No cyanosis, No edema, No tenderness/swelling Skin: No rashes, No breakdown - Results Results: Laboratory Results WBC 12.0 x10^3/uL (4.8-10.8) H 09/03/21 04:39 RBC 4.69 10^6/uL (4.70-6.10) L 09/03/21 04:39 Hgb 13.6 g/dL (14.0-18.0) L 09/03/21 04:39 Hct 40.8 % (42.0-52.0) L 09/03/21 04:39 MCV 87.0 fL (80.0-94.0) 09/03/21 04:39 MCH 29.0 pg (27.0-31.0) 09/03/21 04:39 MCHC 33.3 g/dL (32.0-36.0) 09/03/21 04:39 RDW 13.0 % (12.0-15.0) 09/03/21 04:39 Plt Count 296 10^3/uL (130-450) 09/03/21 04:39 MPV 10.9 fL (7.4-11.4) 09/03/21 04:39 Neut # (Auto) 9.7 10^3/uL (1.5-6.6) H 09/03/21 04:39 Lymph # (Auto) 1.1 10^3/uL (1.5-3.5) L 09/03/21 04:39 Eagle # (Auto) 0.7 10^3/uL (0.0-1.0) 09/03/21 04:39 Eos # (Auto) 0.0 10^3/uL (0.0-0.7) 09/03/21 04:39 Baso # (Auto) 0.0 10^3/uL (0.0-0.1) 09/03/21 04:39 Absolute Nucleated RBC 0.00 x10^3/uL 09/03/21 04:39 Nucleated RBC % 0.0 /100WBC 09/03/21 04:39 Manual Slide Review Indicated 08/31/21 10:33 PT 13.1 secs (9.9-12.6) H 08/31/21 10:33 INR 1.2 (0.8-1.2) 08/31/21 10:33 Bld Gas Analysis Time 0725 09/02/21 07:15 Sample Site RIGHT RADIAL 09/02/21 07:15 ABG pH 7.55 (7.35-7.45) H 09/02/21 07:15 ABG pCO2 30 mmHg (34-45) L 09/02/21 07:15 ABG pO2 74 mmHg (80-100) L 09/02/21 07:15 ABG HCO3 25.7 mmol/L (22.0-26.0) 09/02/21 07:15 ABG Total CO2 26.6 MMOL/L (21.0-29.0) 09/02/21 07:15 ABG O2 Saturation 95 % (94-98) 09/02/21 07:15 ABG Base Excess 4.0 mmol/L (-2.0-3.0) H 09/02/21 07:15 Denis Test POSITIVE 09/02/21 07:15 O2 Delivery Device BiPAP 09/02/21 07:15 FiO2 100.00 09/02/21 07:15 EPAP 5 cmH2O 09/02/21 07:15 IPAP 12 cmH2O 09/02/21 07:15 Sodium 135 mmol/L (135-145) 09/03/21 04:39 Potassium 4.0 mmol/L (3.5-5.0) 09/03/21 04:39 Chloride 96 mmol/L (101-111) L 09/03/21 04:39 Carbon Dioxide 29 mmol/L (21-32) 09/03/21 04:39 Anion Gap 10.0 (6-13) 09/03/21 04:39 BUN 22 mg/dL (6-20) H 09/03/21 04:39 Creatinine 0.7 mg/dL (0.6-1.2) 09/03/21 04:39 Estimated GFR (MDRD) 114 (>89) 09/03/21 04:39 Glucose 92 mg/dL (70-100) 09/03/21 04:39 Calcium 8.4 mg/dL (8.5-10.3) L 09/03/21 04:39 Phosphorus 3.9 mg/dL (2.5-4.6) 09/03/21 04:39 Magnesium 2.4 mg/dL (1.7-2.8) 09/03/21 04:39 Total Bilirubin 0.9 mg/dL (0.2-1.0) 08/31/21 10:33 AST 36 IU/L (10-42) 08/31/21 10:33 ALT 36 IU/L (10-60) 08/31/21 10:33 Alkaline Phosphatase 64 IU/L (42-121) 08/31/21 10:33 Total Protein 7.2 g/dL (6.7-8.2) 08/31/21 10:33 Albumin 3.7 g/dL (3.2-5.5) 08/31/21 10:33 Globulin 3.5 g/dL (2.1-4.2) 08/31/21 10:33 Albumin/Globulin Ratio 1.1 (1.0-2.2) 08/31/21 10:33 Lipase 59 U/L (22-51) H 08/31/21 10:33 25-OH Vitamin D Total 60 ng/mL (30-100) 08/31/21 14:58 Nasal Adenovirus (PCR) NOT DETECTED 08/31/21 09:12 Nasal B. parapertussis DNA (PCR) NOT DETECTED 08/31/21 09:12 Nasal Coronavir 229E PCR NOT DETECTED 08/31/21 09:12 Nasal Coronavir HKU1 PCR NOT DETECTED 08/31/21 09:12 Nasal Coronavir NL63 PCR NOT DETECTED 08/31/21 09:12 Nasal Coronavir OC43 PCR NOT DETECTED 08/31/21 09:12 Nasal Enterovir/Rhinovir PCR NOT DETECTED 08/31/21 09:12 Nasal Influenza B PCR NOT DETECTED 08/31/21 09:12 Nasal Influenza A PCR NOT DETECTED 08/31/21 09:12 Nasal Parainfluen 1 PCR NOT DETECTED 08/31/21 09:12 Nasal Parainfluen 2 PCR NOT DETECTED 08/31/21 09:12 Nasal Parainfluen 3 PCR NOT DETECTED 08/31/21 09:12 Nasal Parainfluen 4 PCR NOT DETECTED 08/31/21 09:12 Nasal RSV (PCR) NOT DETECTED 08/31/21 09:12 Nasal Screen MRSA (PCR) NEGATIVE (NEGATIVE) 09/01/21 20:00 Nasal B.pertussis DNA PCR NOT DETECTED 08/31/21 09:12 Nasal C.pneumoniae (PCR) NOT DETECTED 08/31/21 09:12 Amanuel Human Metapneumo PCR NOT DETECTED 08/31/21 09:12 Nasal M.pneumoniae (PCR) NOT DETECTED 08/31/21 09:12 Nasal SARS-CoV-2 (PCR) DETECTED A 08/31/21 09:12 ABX Reporting Has patient been on IV antibiotics over the past 48 hours?: Yes
[2021-09-03] MEDS: FUROSEMIDE 40 MG/4 ML VIAL IVP SCH (08:26)
[2021-09-03] MEDS: DEXAMETHASONE 4 MG/ML VIAL IVP SCH (08:27)
[2021-09-03] MEDS: CHOLECALCIFEROL 5,000 UNIT CAPSULE PO SCH (08:28)
[2021-09-03] MEDS: ASCORBIC ACID 500 MG TABLET PO SCH (08:28)
[2021-09-03] MEDS: ENOXAPARIN 40 MG/0.4 ML SYRINGE SUBQ SCH (08:29)
[2021-09-03] MEDS: cefTRIAXone 1 GM in SODIUM CHLORIDE 0.9% MINIBAG 100 ML IV SCH (08:35)
[2021-09-03] MEDS: ZINC SULFATE 220 MG CAPSULE PO SCH (09:34)
[2021-09-04 05:31] LABS: BASOPHILS % (AUTO) 0.4 %; EOSINOPHILS % (AUTO) 0.8 %; HCT - HEMATOCRIT 41.9 % (42.0-52.0); HGB - HEMOGLOBIN 14.2 g/dL (14.0-18.0); LYMPHOCYTES % (AUTO) 7.9 %; MEAN CORPUSCULAR HEMOGLOBIN 28.9 pg (27.0-31.0); MEAN CORPUSCULAR HGB CONC 33.9 g/dL (32.0-36.0); MEAN CORPUSCULAR VOLUME 85.2 fL (80.0-94.0); MEAN PLATELET VOLUME 10.3 fL (7.4-11.4); NEUTROPHILS % (AUTO) 81.6 %; PLT - PLATELET COUNT 316 10^3/uL (130-450); RED BLOOD COUNT 4.92 10^6/uL (4.70-6.10); RED CELL DISTRIBUTION WIDTH 12.4 % (12.0-15.0); WHITE BLOOD COUNT 14.7 x10^3/uL (4.8-10.8)
[2021-09-04 05:35] LABS: ABNORMAL LYMPHS % (MANUAL) 0 %; BAND NEUTROPHILS % (MANUAL) 0 %
[2021-09-04 05:40] LABS: CALCIUM 8.5 mg/dL (8.5-10.3); CREATININE 0.7 mg/dL (0.6-1.2); POTASSIUM 3.7 mmol/L (3.5-5.0)
[2021-09-04 06:11] LABS: DIFFERENTIAL COMMENT MANUAL DIFFERENTIAL; LYMPHOCYTES # (MANUAL) 0.4 10^3/uL (1.5-3.5); LYMPHOCYTES % (MANUAL) 3 %; MONOCYTES # (MANUAL) 0.4 10^3/uL (0.0-1.0); MYELOCYTES % (MANUAL) 1 %; NEUTROPHILS # (MANUAL) 13.7 10^3/uL (1.5-6.6); PLATELET ESTIMATE, MANUAL NORMAL (130-450,000) (NORMAL); PLATELET MORPHOLOGY NORMAL APPEARANCE (NORMAL); RBC MORPHOLOGY (MULTIPLE) NORMAL APPEARANCE (NORMAL); WBC MORPHOLOGY (MULTIPLE) NORMAL APPEARANCE (NORMAL)
[2021-09-04] MEDS: SODIUM CHLORIDE FLUSH 0.9% 10 ML SYRINGE IVP SCH ×7 (06:16→21:51)
[2021-09-04 06:18] LABS: MAGNESIUM 2.6 mg/dL (1.7-2.8); PHOSPHORUS 3.8 mg/dL (2.5-4.6)
[2021-09-04] MEDS ORDERED: POTASSIUM CHLORIDE 20 MEQ TABLET PO ONE (08:00)
[2021-09-04] MEDS: ZINC SULFATE 220 MG CAPSULE PO SCH (08:31)
[2021-09-04] MEDS: ASCORBIC ACID 500 MG TABLET PO SCH (08:31)
[2021-09-04] MEDS: CHOLECALCIFEROL 5,000 UNIT CAPSULE PO SCH (08:31)
[2021-09-04] MEDS: DEXAMETHASONE 4 MG/ML VIAL IVP SCH (08:33)
[2021-09-04] MEDS: FUROSEMIDE 40 MG/4 ML VIAL IVP SCH (08:33)
[2021-09-04] MEDS: ENOXAPARIN 40 MG/0.4 ML SYRINGE SUBQ SCH (08:34)
[2021-09-04] MEDS: cefTRIAXone 1 GM in SODIUM CHLORIDE 0.9% MINIBAG 100 ML IV SCH (08:35)
[2021-09-04] MEDS: MORPHINE 2 MG/ML CARPUJECT IVP PRN ×2 (10:18→21:50)
[2021-09-04] MEDS ORDERED: polyethylene glycoL 3350 17 GM PACKET PO SCH (11:00)
--- NOTE | 2021-09-04 16:51 | PROVIDER PROGRESS NOTE ---
Assessment/Plan - Problem List (1) Acute respiratory failure with hypoxia Assessment/Plan: Secondary to COVID-19 pneumonia. Patient is currently on high flow nasal cannula at an FiO2 of 100% flowing at 40 L. His oxygen saturation has been approximately 90%. Patient appears more comfortable today and less anxious. Tachypnea and tachycardia have resolved. Dexamethasone day 03/16. Patient completed azithromycin on 09/02/2021. Rocephin 5/5 today. He had refused treatment with Rendesivir. Remain in ICUI while needing HiFlow supplemental O2 (2) Pneumonia due to COVID-19 virus Assessment/Plan: Patient is currently on high flow nasal cannula at an FiO2 of 100% flowing at 40 L. His oxygen saturation has been approximately 90%. Patient appears more comfortable today and less anxious. Tachypnea and tachycardia have resolved. Dexamethasone day 03/16. Patient completed azithromycin on 09/02/2021. Rocephin 5/5 today. He had refused treatment with Rendesivir. He is on supplemental zinc, vitamin C and vitamin D. Tablets of ivermectin were confiscated from patient's room 2 days agon. These have been taken to the pharmacy for safekeeping. (3) Hypertension Assessment/Plan: Hydralazine ordered prn - Current Meds Current Meds: Current Medications Generic Name Dose Route Start Last Admin Trade Name Freq PRN Reason Stop Dose Admin Acetaminophen 650 mg 08/31/21 11:33 09/01/21 05:47 Acetaminophen 325 Mg Tablet PO 650 mg Q4HR PRN Administration Pain 1 to 4 Ascorbic Acid 500 mg 09/03/21 09:00 09/04/21 08:31 Ascorbic Acid 500 Mg Tablet PO 500 mg DAILY LUCIANO Administration Cholecalciferol 5,000 unit 09/03/21 09:00 09/04/21 08:31 Cholecalciferol 5,000 Unit Capsule PO 09/07/21 09:01 5,000 unit DAILY LUCIANO Administration Dexamethasone 6 mg 09/01/21 09:00 09/04/21 08:33 Dexamethasone 4 Mg/Ml Vial IVP 09/09/21 09:01 6 mg DAILY LUCIANO Administration Enoxaparin Sodium 40 mg 09/01/21 09:00 09/04/21 08:34 Enoxaparin 40 Mg/0.4 Ml Syringe SUBQ 40 mg DAILY LUCIANO Administration Furosemide 40 mg 09/03/21 09:00 09/04/21 08:33 Furosemide 40 Mg/4 Ml Vial IVP 09/05/21 09:01 40 mg DAILY LUCIANO Administration Lorazepam 0.5 mg 09/01/21 08:21 09/02/21 01:45 Lorazepam 2 Mg/Ml Vial IVP 0.5 mg Q6H PRN Administration Anxiety Morphine Sulfate 2 mg 09/01/21 06:58 09/04/21 10:18 Morphine 2 Mg/Ml Carpuject IVP 2 mg Q2HR PRN Administration Dyspnea Sodium Chloride 10 ml 08/31/21 11:33 09/02/21 02:43 Sodium Chloride Flush 0.9% 10 Ml Syringe IVP 10 ml PRN PRN Administration NEEDED PER PROVIDER ORDERS Sodium Chloride 10 ml 08/31/21 17:00 09/04/21 08:34 Sodium Chloride Flush 0.9% 10 Ml Syringe IVP 10 ml 0100,0900,1700 LUCIANO Administration Sodium Chloride 10 ml 09/02/21 01:00 09/04/21 08:35 Sodium Chloride Flush 0.9% 10 Ml Syringe IVP 10 ml 0100,0900,1700 LUCIANO Administration Zinc Sulfate 220 mg 09/03/21 09:00 09/04/21 08:31 Zinc Sulfate 220 Mg Capsule PO 09/07/21 09:01 220 mg DAILY LUCIANO Administration - Lab Result Fish Bone Diagrams: 09/05/21 05:19 09/05/21 05:19 Subjective - Subjective Patient Reports: Constipation (No BM for about 4 days, usually has BM daily), Other (Able to tolerate being OOB today. Stil on HiFlow Oxygen supplemental) Objective Vital Signs: Vital Signs - 24 hr 09/03/21 09/03/21 09/03/21 17:00 20:12 21:00 Temperature 36.8 C 36.7 C 36.7 C Heart Rate [ 90 85 Monitoring electrodes] Respiratory 17 20 Rate Blood Pressure 156/114 H 149/88 H [Left Brachial artery] O2 Saturation 95 92 09/04/21 09/04/21 09/04/21 00:54 05:00 08:16 Temperature 36.8 C 36.7 C 36.8 C Heart Rate [ 77 80 98 Monitoring electrodes] Respiratory 21 19 17 Rate Blood Pressure 147/95 H 160/94 H 142/99 H [Left Brachial artery] O2 Saturation 90 L 88 L 90 L 09/04/21 09/04/21 10:17 13:00 Temperature 36.9 C 36.8 C Heart Rate [ 99 Monitoring electrodes] Respiratory 22 Rate Blood Pressure 129/79 [Left Brachial artery] O2 Saturation 94 Oxygen O2 Source HHFNC Oxygen Flow Rate 15 I&O (Last 24 Hrs): Intake and Output Totals x24h 09/02/21 09/03/21 09/04/21 23:59 23:59 23:59 Intake Total 4560 1050 2780 Output Total 2605 2120 2320 Balance 1955 -1070 460 General: Alert, Oriented x3 HEENT: Mucous membr. moist/pink, Other (On )2 HiFlow) Neck: Supple, No JVD Neuro: Alert, Non Focal Cardiovascular: Regular rate Respiratory: No respiratory distress, Other (Diminished bnreath sounds at bases) Abdomen: Normal bowel sounds, Soft Extremities: No edema - Results Results: Laboratory Results WBC 14.7 x10^3/uL (4.8-10.8) H 09/04/21 04:58 RBC 4.92 10^6/uL (4.70-6.10) 09/04/21 04:58 Hgb 14.2 g/dL (14.0-18.0) 09/04/21 04:58 Hct 41.9 % (42.0-52.0) L 09/04/21 04:58 MCV 85.2 fL (80.0-94.0) 09/04/21 04:58 MCH 28.9 pg (27.0-31.0) 09/04/21 04:58 MCHC 33.9 g/dL (32.0-36.0) 09/04/21 04:58 RDW 12.4 % (12.0-15.0) 09/04/21 04:58 Plt Count 316 10^3/uL (130-450) 09/04/21 04:58 MPV 10.3 fL (7.4-11.4) 09/04/21 04:58 Neut # (Auto) Not Reportable 09/04/21 04:58 Lymph # (Auto) Not Reportable 09/04/21 04:58 [place] # (Auto) Not Reportable 09/04/21 04:58 Eos # (Auto) Not Reportable 09/04/21 04:58 Baso # (Auto) Not Reportable 09/04/21 04:58 Absolute Nucleated RBC Not Reportable 09/04/21 04:58 Total Counted 100 09/04/21 04:58 Band Neuts % (Manual) 0 % (0-10) 09/04/21 04:58 Abnorm Lymph % (Manual) 0 % 09/04/21 04:58 Myelocytes % 1 % (-0) H 09/04/21 04:58 Nucleated RBC % Not Reportable 09/04/21 04:58 Neutrophils # (Manual) 13.7 10^3/uL (1.5-6.6) H 09/04/21 04:58 Lymphocytes # (Manual) 0.4 10^3/uL (1.5-3.5) L 09/04/21 04:58 Monocytes # (Manual) 0.4 10^3/uL (0.0-1.0) 09/04/21 04:58 Eosinophils # (Manual) 0.0 10^3/uL (0-0.7) 09/04/21 04:58 Basophils # (Manual) 0.0 10^3/uL (0-0.1) 09/04/21 04:58 Differential Comment MANUAL DIFFERENTIAL 09/04/21 04:58 Manual Slide Review Indicated 08/31/21 10:33 WBC Morphology NORMAL APPEARANCE (NORMAL) 09/04/21 04:58 Platelet Estimate NORMAL (130-450,000) (NORMAL) 09/04/21 04:58 Platelet Morphology NORMAL APPEARANCE (NORMAL) 09/04/21 04:58 RBC Morph Micro Appear NORMAL APPEARANCE (NORMAL) 09/04/21 04:58 PT 13.1 secs (9.9-12.6) H 08/31/21 10:33 INR 1.2 (0.8-1.2) 08/31/21 10:33 Bld Gas Analysis Time 0725 09/02/21 07:15 Sample Site RIGHT RADIAL 09/02/21 07:15 ABG pH 7.55 (7.35-7.45) H 09/02/21 07:15 ABG pCO2 30 mmHg (34-45) L 09/02/21 07:15 ABG pO2 74 mmHg (80-100) L 09/02/21 07:15 ABG HCO3 25.7 mmol/L (22.0-26.0) 09/02/21 07:15 ABG Total CO2 26.6 MMOL/L (21.0-29.0) 09/02/21 07:15 ABG O2 Saturation 95 % (94-98) 09/02/21 07:15 ABG Base Excess 4.0 mmol/L (-2.0-3.0) H 09/02/21 07:15 Denis Test POSITIVE 09/02/21 07:15 O2 Delivery Device BiPAP 09/02/21 07:15 FiO2 100.00 09/02/21 07:15 EPAP 5 cmH2O 09/02/21 07:15 IPAP 12 cmH2O 09/02/21 07:15 Sodium 133 mmol/L (135-145) L 09/04/21 04:58 Potassium 3.7 mmol/L (3.5-5.0) 09/04/21 04:58 Chloride 93 mmol/L (101-111) L 09/04/21 04:58 Carbon Dioxide 29 mmol/L (21-32) 09/04/21 04:58 Anion Gap 11.0 (6-13) 09/04/21 04:58 BUN 23 mg/dL (6-20) H 09/04/21 04:58 Creatinine 0.7 mg/dL (0.6-1.2) 09/04/21 04:58 Estimated GFR (MDRD) 114 (>89) 09/04/21 04:58 Glucose 96 mg/dL (70-100) 09/04/21 04:58 Calcium 8.5 mg/dL (8.5-10.3) 09/04/21 04:58 Phosphorus 3.8 mg/dL (2.5-4.6) 09/04/21 04:58 Magnesium 2.6 mg/dL (1.7-2.8) 09/04/21 04:58 Total Bilirubin 0.9 mg/dL (0.2-1.0) 08/31/21 10:33 AST 36 IU/L (10-42) 08/31/21 10:33 ALT 36 IU/L (10-60) 08/31/21 10:33 Alkaline Phosphatase 64 IU/L (42-121) 08/31/21 10:33 Total Protein 7.2 g/dL (6.7-8.2) 08/31/21 10:33 Albumin 3.7 g/dL (3.2-5.5) 08/31/21 10:33 Globulin 3.5 g/dL (2.1-4.2) 08/31/21 10:33 Albumin/Globulin Ratio 1.1 (1.0-2.2) 08/31/21 10:33 Lipase 59 U/L (22-51) H 08/31/21 10:33 25-OH Vitamin D Total 60 ng/mL (30-100) 08/31/21 14:58 Nasal Adenovirus (PCR) NOT DETECTED 08/31/21 09:12 Nasal B. parapertussis DNA (PCR) NOT DETECTED 08/31/21 09:12 Nasal Coronavir 229E PCR NOT DETECTED 08/31/21 09:12 Nasal Coronavir HKU1 PCR NOT DETECTED 08/31/21 09:12 Nasal Coronavir NL63 PCR NOT DETECTED 08/31/21 09:12 Nasal Coronavir OC43 PCR NOT DETECTED 08/31/21 09:12 Nasal Enterovir/Rhinovir PCR NOT DETECTED 08/31/21 09:12 Nasal Influenza B PCR NOT DETECTED 08/31/21 09:12 Nasal Influenza A PCR NOT DETECTED 08/31/21 09:12 Nasal Parainfluen 1 PCR NOT DETECTED 08/31/21 09:12 Nasal Parainfluen 2 PCR NOT DETECTED 08/31/21 09:12 Nasal Parainfluen 3 PCR NOT DETECTED 08/31/21 09:12 Nasal Parainfluen 4 PCR NOT DETECTED 08/31/21 09:12 Nasal RSV (PCR) NOT DETECTED 08/31/21 09:12 Nasal Screen MRSA (PCR) NEGATIVE (NEGATIVE) 09/01/21 20:00 Nasal B.pertussis DNA PCR NOT DETECTED 08/31/21 09:12 Nasal C.pneumoniae (PCR) NOT DETECTED 08/31/21 09:12 Amanuel Human Metapneumo PCR NOT DETECTED 08/31/21 09:12 Nasal M.pneumoniae (PCR) NOT DETECTED 08/31/21 09:12 Nasal SARS-CoV-2 (PCR) DETECTED A 08/31/21 09:12
[2021-09-05 05:28] LABS: BASOPHILS % (AUTO) 0.3 %; EOSINOPHILS % (AUTO) 2.3 %; HCT - HEMATOCRIT 42.6 % (42.0-52.0); HGB - HEMOGLOBIN 14.5 g/dL (14.0-18.0); LYMPHOCYTES % (AUTO) 8.8 %; MEAN CORPUSCULAR HEMOGLOBIN 29.4 pg (27.0-31.0); MEAN CORPUSCULAR VOLUME 86.4 fL (80.0-94.0); MEAN PLATELET VOLUME 10.2 fL (7.4-11.4); MONOCYTES % (AUTO) 6.1 %; NEUTROPHILS % (AUTO) 77.3 %; PLT - PLATELET COUNT 302 10^3/uL (130-450); RED BLOOD COUNT 4.93 10^6/uL (4.70-6.10); RED CELL DISTRIBUTION WIDTH 12.4 % (12.0-15.0); WHITE BLOOD COUNT 14.1 x10^3/uL (4.8-10.8)
[2021-09-05 05:31] LABS: ABNORMAL LYMPHS % (MANUAL) 0 %; BAND NEUTROPHILS % (MANUAL) 0 %
[2021-09-05 05:37] LABS: CALCIUM 8.6 mg/dL (8.5-10.3); CREATININE 0.8 mg/dL (0.6-1.2); POTASSIUM 3.9 mmol/L (3.5-5.0)
[2021-09-05 05:49] LABS: MAGNESIUM 2.6 mg/dL (1.7-2.8); PHOSPHORUS 3.9 mg/dL (2.5-4.6)
[2021-09-05 05:54] LABS: EOSINOPHILS # (MANUAL) 0.4 10^3/uL (0-0.7); LYMPHOCYTES # (MANUAL) 1.6 10^3/uL (1.5-3.5); LYMPHOCYTES % (MANUAL) 11 %; MONOCYTES # (MANUAL) 1.7 10^3/uL (0.0-1.0); NEUTROPHILS # (MANUAL) 10.4 10^3/uL (1.5-6.6)
[2021-09-05 05:55] LABS: DIFFERENTIAL COMMENT MANUAL DIFFERENTIAL; PLATELET ESTIMATE, MANUAL NORMAL (130-450,000) (NORMAL); PLATELET MORPHOLOGY NORMAL APPEARANCE (NORMAL); RBC MORPHOLOGY (MULTIPLE) NORMAL APPEARANCE (NORMAL); WBC MORPHOLOGY (MULTIPLE) NORMAL APPEARANCE (NORMAL)
[2021-09-05] MEDS: ASCORBIC ACID 500 MG TABLET PO SCH (08:43)
[2021-09-05] MEDS: ZINC SULFATE 220 MG CAPSULE PO SCH (08:43)
[2021-09-05] MEDS: DEXAMETHASONE 4 MG/ML VIAL IVP SCH (08:45)
[2021-09-05] MEDS: FUROSEMIDE 40 MG/4 ML VIAL IVP SCH (08:45)
[2021-09-05] MEDS: ENOXAPARIN 40 MG/0.4 ML SYRINGE SUBQ SCH (08:45)
[2021-09-05] MEDS: SODIUM CHLORIDE FLUSH 0.9% 10 ML SYRINGE IVP SCH ×5 (08:53→16:28)
[2021-09-05] MEDS: polyethylene glycoL 3350 17 GM PACKET PO SCH (10:30)
[2021-09-05] MEDS: CHOLECALCIFEROL 5,000 UNIT CAPSULE PO SCH (16:25)
--- NOTE | 2021-09-05 19:44 | PROVIDER PROGRESS NOTE ---
Assessment/Plan - Problem List (1) Acute respiratory failure with hypoxia Assessment/Plan: Secondary to COVID-19 pneumonia. Patient is currently on high flow nasal cannula at an FiO2 of 100% flowing at 40 L. His oxygen saturation has been approximately 90%. Patient appears comfortable today on suppl O2 via HHFFNC for 2 days Dexamethasone iv continues. Patient completed azithromycin and Rocephin. He had refused treatment with Remdesivir. Will transfer out of ICU today, to [facility] bed, telemetry (2) Pneumonia due to COVID-19 virus Assessment/Plan: Patient is on 2nd day of high flow nasal cannula at an FiO2 of 100% flowing at 40 L. BIPAP was stopped. His oxygen saturation has been approximately 90%. RT also stated he has ELAÍS. Dexamethasone iv continues. Patient completed azithromycin and Rocephin. He had refused treatment with Rendesivir. He is on supplemental zinc, vitamin C and vitamin D. Tablets of ivermectin were confiscated from patient's room 2 days agon. These have been taken to the pharmacy for safekeeping. (3) Hypertension Assessment/Plan: He was on losartan at home, unknown why it was not continued here and IV hydralazine as needed only was ordered. Vital signs have been stable here even without losartan - Current Meds Current Meds: Current Medications Generic Name Dose Route Start Last Admin Trade Name Freq PRN Reason Stop Dose Admin Acetaminophen 650 mg 08/31/21 11:33 09/01/21 05:47 Acetaminophen 325 Mg Tablet PO 650 mg Q4HR PRN Administration Pain 1 to 4 Ascorbic Acid 500 mg 09/03/21 09:00 09/05/21 08:43 Ascorbic Acid 500 Mg Tablet PO 500 mg DAILY LUCIANO Administration Cholecalciferol 5,000 unit 09/03/21 09:00 09/05/21 16:25 Cholecalciferol 5,000 Unit Capsule PO 09/07/21 09:01 5,000 unit DAILY LUCIANO Administration Dexamethasone 6 mg 09/01/21 09:00 09/05/21 08:45 Dexamethasone 4 Mg/Ml Vial IVP 09/09/21 09:01 6 mg DAILY LUCIANO Administration Enoxaparin Sodium 40 mg 09/01/21 09:00 09/05/21 08:45 Enoxaparin 40 Mg/0.4 Ml Syringe SUBQ 40 mg DAILY LUCIANO Administration Lorazepam 0.5 mg 09/01/21 08:21 09/02/21 01:45 Lorazepam 2 Mg/Ml Vial IVP 0.5 mg Q6H PRN Administration Anxiety Morphine Sulfate 2 mg 09/01/21 06:58 09/04/21 21:50 Morphine 2 Mg/Ml Carpuject IVP 2 mg Q2HR PRN Administration Dyspnea Polyethylene Glycol 17 gm 09/05/21 09:00 09/05/21 10:30 Polyethylene Glycol 3350 17 Gm Packet PO 17 gm DAILY LUCIANO Administration Sodium Chloride 10 ml 08/31/21 11:33 09/02/21 02:43 Sodium Chloride Flush 0.9% 10 Ml Syringe IVP 10 ml PRN PRN Administration NEEDED PER PROVIDER ORDERS Sodium Chloride 10 ml 08/31/21 17:00 09/05/21 16:25 Sodium Chloride Flush 0.9% 10 Ml Syringe IVP 10 ml 0100,0900,1700 LUCIANO Administration Sodium Chloride 10 ml 09/02/21 01:00 09/05/21 16:28 Sodium Chloride Flush 0.9% 10 Ml Syringe IVP Not Given 0100,0900,1700 LUCIANO Zinc Sulfate 220 mg 09/03/21 09:00 09/05/21 08:43 Zinc Sulfate 220 Mg Capsule PO 09/07/21 09:01 220 mg DAILY LUCIANO Administration - Lab Result Fish Bone Diagrams: 09/05/21 05:19 09/05/21 05:19 - Additional Planning My Orders: My Active Orders 09/05/21 09:22 Telemetry- [RC] Q4HR 09/05/21 13:16 Miscellaenous Nursing Order [RC] DAILY Subjective - Subjective Nursing Reports: Shortness of Breath, Other (After just 3 steps or movement in bed he desaturates, per his RN and RT) Objective Vital Signs: Vital Signs - 24 hr 09/04/21 09/05/21 09/05/21 21:00 02:00 03:32 Temperature Heart Rate [ 73 68 78 Monitoring electrodes] Respiratory 22 19 19 Rate Blood Pressure 128/88 H [Left Brachial artery] O2 Saturation 95 95 92 09/05/21 09/05/21 09/05/21 09:00 12:41 16:37 Temperature 36.6 C 36.8 C 36.8 C Heart Rate [ 95 96 90 Monitoring electrodes] Respiratory 24 22 20 Rate Blood Pressure 122/83 H 121/76 125/72 [Left Brachial artery] O2 Saturation 93 97 Oxygen O2 Source HHFNC Oxygen Flow Rate 15 I&O (Last 24 Hrs): Intake and Output Totals x24h 09/03/21 09/04/21 09/05/21 23:59 23:59 23:59 Intake Total 1050 4030 3290 Output Total 2120 2725 1380 Balance -1070 1305 1910 General: Other (Asleep. Eval done remotely) HEENT: Atraumatic Neuro: Alert, Non Focal Cardiovascular: Regular rate Respiratory: Other (On O2 by heated high flow nasal cannula) Extremities: No edema - Results Results: Laboratory Results WBC 14.1 x10^3/uL (4.8-10.8) H 09/05/21 05:19 RBC 4.93 10^6/uL (4.70-6.10) 09/05/21 05:19 Hgb 14.5 g/dL (14.0-18.0) 09/05/21 05:19 Hct 42.6 % (42.0-52.0) 09/05/21 05:19 MCV 86.4 fL (80.0-94.0) 09/05/21 05:19 MCH 29.4 pg (27.0-31.0) 09/05/21 05:19 MCHC 34.0 g/dL (32.0-36.0) 09/05/21 05:19 RDW 12.4 % (12.0-15.0) 09/05/21 05:19 Plt Count 302 10^3/uL (130-450) 09/05/21 05:19 MPV 10.2 fL (7.4-11.4) 09/05/21 05:19 Neut # (Auto) Not Reportable 09/05/21 05:19 Lymph # (Auto) Not Reportable 09/05/21 05:19 [place] # (Auto) Not Reportable 09/05/21 05:19 Eos # (Auto) Not Reportable 09/05/21 05:19 Baso # (Auto) Not Reportable 09/05/21 05:19 Absolute Nucleated RBC Not Reportable 09/05/21 05:19 Total Counted 100 09/05/21 05:19 Band Neuts % (Manual) 0 % (0-10) 09/05/21 05:19 Abnorm Lymph % (Manual) 0 % 09/05/21 05:19 Myelocytes % 1 % (-0) H 09/04/21 04:58 Nucleated RBC % Not Reportable 09/05/21 05:19 Neutrophils # (Manual) 10.4 10^3/uL (1.5-6.6) H 09/05/21 05:19 Lymphocytes # (Manual) 1.6 10^3/uL (1.5-3.5) 09/05/21 05:19 Monocytes # (Manual) 1.7 10^3/uL (0.0-1.0) H 09/05/21 05:19 Eosinophils # (Manual) 0.4 10^3/uL (0-0.7) 09/05/21 05:19 Basophils # (Manual) 0.0 10^3/uL (0-0.1) 09/05/21 05:19 Differential Comment MANUAL DIFFERENTIAL 09/05/21 05:19 Manual Slide Review Indicated 08/31/21 10:33 WBC Morphology NORMAL APPEARANCE (NORMAL) 09/05/21 05:19 Platelet Estimate NORMAL (130-450,000) (NORMAL) 09/05/21 05:19 Platelet Morphology NORMAL APPEARANCE (NORMAL) 09/05/21 05:19 RBC Morph Micro Appear NORMAL APPEARANCE (NORMAL) 09/05/21 05:19 PT 13.1 secs (9.9-12.6) H 08/31/21 10:33 INR 1.2 (0.8-1.2) 08/31/21 10:33 Bld Gas Analysis Time 0725 09/02/21 07:15 Sample Site RIGHT RADIAL 09/02/21 07:15 ABG pH 7.55 (7.35-7.45) H 09/02/21 07:15 ABG pCO2 30 mmHg (34-45) L 09/02/21 07:15 ABG pO2 74 mmHg (80-100) L 09/02/21 07:15 ABG HCO3 25.7 mmol/L (22.0-26.0) 09/02/21 07:15 ABG Total CO2 26.6 MMOL/L (21.0-29.0) 09/02/21 07:15 ABG O2 Saturation 95 % (94-98) 09/02/21 07:15 ABG Base Excess 4.0 mmol/L (-2.0-3.0) H 09/02/21 07:15 Denis Test POSITIVE 09/02/21 07:15 O2 Delivery Device BiPAP 09/02/21 07:15 FiO2 100.00 09/02/21 07:15 EPAP 5 cmH2O 09/02/21 07:15 IPAP 12 cmH2O 09/02/21 07:15 Sodium 135 mmol/L (135-145) 09/05/21 05:19 Potassium 3.9 mmol/L (3.5-5.0) 09/05/21 05:19 Chloride 94 mmol/L (101-111) L 09/05/21 05:19 Carbon Dioxide 30 mmol/L (21-32) 09/05/21 05:19 Anion Gap 11.0 (6-13) 09/05/21 05:19 BUN 24 mg/dL (6-20) H 09/05/21 05:19 Creatinine 0.8 mg/dL (0.6-1.2) 09/05/21 05:19 Estimated GFR (MDRD) 98 (>89) 09/05/21 05:19 Glucose 95 mg/dL (70-100) 09/05/21 05:19 Calcium 8.6 mg/dL (8.5-10.3) 09/05/21 05:19 Phosphorus 3.9 mg/dL (2.5-4.6) 09/05/21 05:19 Magnesium 2.6 mg/dL (1.7-2.8) 09/05/21 05:19 Total Bilirubin 0.9 mg/dL (0.2-1.0) 08/31/21 10:33 AST 36 IU/L (10-42) 08/31/21 10:33 ALT 36 IU/L (10-60) 08/31/21 10:33 Alkaline Phosphatase 64 IU/L (42-121) 08/31/21 10:33 Total Protein 7.2 g/dL (6.7-8.2) 08/31/21 10:33 Albumin 3.7 g/dL (3.2-5.5) 08/31/21 10:33 Globulin 3.5 g/dL (2.1-4.2) 08/31/21 10:33 Albumin/Globulin Ratio 1.1 (1.0-2.2) 08/31/21 10:33 Lipase 59 U/L (22-51) H 08/31/21 10:33 25-OH Vitamin D Total 60 ng/mL (30-100) 08/31/21 14:58 Nasal Adenovirus (PCR) NOT DETECTED 08/31/21 09:12 Nasal B. parapertussis DNA (PCR) NOT DETECTED 08/31/21 09:12 Nasal Coronavir 229E PCR NOT DETECTED 08/31/21 09:12 Nasal Coronavir HKU1 PCR NOT DETECTED 08/31/21 09:12 Nasal Coronavir NL63 PCR NOT DETECTED 08/31/21 09:12 Nasal Coronavir OC43 PCR NOT DETECTED 08/31/21 09:12 Nasal Enterovir/Rhinovir PCR NOT DETECTED 08/31/21 09:12 Nasal Influenza B PCR NOT DETECTED 08/31/21 09:12 Nasal Influenza A PCR NOT DETECTED 08/31/21 09:12 Nasal Parainfluen 1 PCR NOT DETECTED 08/31/21 09:12 Nasal Parainfluen 2 PCR NOT DETECTED 08/31/21 09:12 Nasal Parainfluen 3 PCR NOT DETECTED 08/31/21 09:12 Nasal Parainfluen 4 PCR NOT DETECTED 08/31/21 09:12 Nasal RSV (PCR) NOT DETECTED 08/31/21 09:12 Nasal Screen MRSA (PCR) NEGATIVE (NEGATIVE) 09/01/21 20:00 Nasal B.pertussis DNA PCR NOT DETECTED 08/31/21 09:12 Nasal C.pneumoniae (PCR) NOT DETECTED 08/31/21 09:12 Amanuel Human Metapneumo PCR NOT DETECTED 08/31/21 09:12 Nasal M.pneumoniae (PCR) NOT DETECTED 08/31/21 09:12 Nasal SARS-CoV-2 (PCR) DETECTED A 08/31/21 09:12
[2021-09-05] MEDS: ACETAMINOPHEN 325 MG TABLET PO PRN (22:16)
[2021-09-06] MEDS: SODIUM CHLORIDE FLUSH 0.9% 10 ML SYRINGE IVP SCH ×6 (01:00→16:55)
[2021-09-06 06:07] LABS: BASOPHILS % (AUTO) 0.3 %; EOSINOPHILS % (AUTO) 3.3 %; HGB - HEMOGLOBIN 14.4 g/dL (14.0-18.0); LYMPHOCYTES % (AUTO) 10.6 %; MEAN CORPUSCULAR HEMOGLOBIN 29.4 pg (27.0-31.0); MEAN CORPUSCULAR HGB CONC 34.3 g/dL (32.0-36.0); MEAN CORPUSCULAR VOLUME 85.9 fL (80.0-94.0); MEAN PLATELET VOLUME 10.1 fL (7.4-11.4); MONOCYTES % (AUTO) 7.6 %; NEUTROPHILS % (AUTO) 73.1 %; PLT - PLATELET COUNT 310 10^3/uL (130-450); RED BLOOD COUNT 4.89 10^6/uL (4.70-6.10); RED CELL DISTRIBUTION WIDTH 12.1 % (12.0-15.0); WHITE BLOOD COUNT 12.5 x10^3/uL (4.8-10.8)
[2021-09-06 06:10] LABS: ABNORMAL LYMPHS % (MANUAL) 0 %
[2021-09-06 06:15] LABS: CALCIUM 8.7 mg/dL (8.5-10.3); CREATININE 0.8 mg/dL (0.6-1.2); POTASSIUM 3.9 mmol/L (3.5-5.0)
[2021-09-06 07:07] LABS: BAND NEUTROPHILS % (MANUAL) 5 %; EOSINOPHILS # (MANUAL) 0.5 10^3/uL (0-0.7); LYMPHOCYTES # (MANUAL) 1.4 10^3/uL (1.5-3.5); LYMPHOCYTES % (MANUAL) 9 %; MONOCYTES # (MANUAL) 0.4 10^3/uL (0.0-1.0); NEUTROPHILS # (MANUAL) 10.3 10^3/uL (1.5-6.6); REACTIVE LYMPHS % (MANUAL) 2 %
[2021-09-06 07:08] LABS: DIFFERENTIAL COMMENT MANUAL DIFFERENTIAL; PLATELET ESTIMATE, MANUAL NORMAL (130-450,000) (NORMAL); PLATELET MORPHOLOGY 1+ GIANT PLATELETS (NORMAL); RBC MORPHOLOGY (MULTIPLE) NORMAL APPEARANCE (NORMAL)
[2021-09-06] MEDS: ZINC SULFATE 220 MG CAPSULE PO SCH (11:12)
[2021-09-06] MEDS: ASCORBIC ACID 500 MG TABLET PO SCH (11:12)
[2021-09-06] MEDS: CHOLECALCIFEROL 5,000 UNIT CAPSULE PO SCH (11:12)
[2021-09-06] MEDS: polyethylene glycoL 3350 17 GM PACKET PO SCH (11:13)
[2021-09-06] MEDS: DEXAMETHASONE 4 MG/ML VIAL IVP SCH (11:14)
[2021-09-06] MEDS: ENOXAPARIN 40 MG/0.4 ML SYRINGE SUBQ SCH (11:16)
--- NOTE | 2021-09-06 17:28 | PROVIDER PROGRESS NOTE ---
Assessment/Plan - Problem List (1) Acute respiratory failure with hypoxia Assessment/Plan: Secondary to COVID-19 pneumonia. Patient is currently on high flow nasal cannula, 40 L was able to decrease to 25L today. His oxygen saturation has been approximately 90%. Patient appears comfortable today on suppl O2 via [facility] for several days Dexamethasone iv continues. Patient completed azithromycin and Rocephin. He had refused treatment with Remdesivir. (2) Pneumonia due to COVID-19 virus Assessment/Plan: Patient was on high flow nasal cannula at an FiO2 of 100% flowing at 40 L>> today tolerated decrease to 25L. BIPAP was stopped. His oxygen saturation has been approximately 90%. RT also stated he has ELÍAS. Dexamethasone iv continues. Patient completed azithromycin and Rocephin. He had refused treatment with Rendesivir. He is on supplemental zinc, vitamin C and vitamin D. Tablets of ivermectin were confiscated from patient's room. These have been taken to the pharmacy for safekeeping. (3) Hypertension Assessment/Plan: He was on losartan at home, unknown why it was not continued here and IV hydralazine as needed only was ordered. Vital signs have been stable here even without losartan - Current Meds Current Meds: Current Medications Generic Name Dose Route Start Last Admin Trade Name Freq PRN Reason Stop Dose Admin Acetaminophen 650 mg 08/31/21 11:33 09/05/21 22:16 Acetaminophen 325 Mg Tablet PO 650 mg Q4HR PRN Administration Pain 1 to 4 Ascorbic Acid 500 mg 09/03/21 09:00 09/06/21 11:12 Ascorbic Acid 500 Mg Tablet PO 500 mg DAILY LUCIANO Administration Cholecalciferol 5,000 unit 09/03/21 09:00 09/06/21 11:12 Cholecalciferol 5,000 Unit Capsule PO 09/07/21 09:01 5,000 unit DAILY LUCIANO Administration Dexamethasone 6 mg 09/01/21 09:00 09/06/21 11:14 Dexamethasone 4 Mg/Ml Vial IVP 09/09/21 09:01 6 mg DAILY LUCIANO Administration Enoxaparin Sodium 40 mg 09/01/21 09:00 09/06/21 11:16 Enoxaparin 40 Mg/0.4 Ml Syringe SUBQ 40 mg DAILY LUCIANO Administration Lorazepam 0.5 mg 09/01/21 08:21 09/02/21 01:45 Lorazepam 2 Mg/Ml Vial IVP 0.5 mg Q6H PRN Administration Anxiety Morphine Sulfate 2 mg 09/01/21 06:58 09/04/21 21:50 Morphine 2 Mg/Ml Carpuject IVP 2 mg Q2HR PRN Administration Dyspnea Polyethylene Glycol 17 gm 09/05/21 09:00 09/06/21 11:13 Polyethylene Glycol 3350 17 Gm Packet PO 17 gm DAILY LUCIANO Administration Sodium Chloride 10 ml 08/31/21 11:33 09/02/21 02:43 Sodium Chloride Flush 0.9% 10 Ml Syringe IVP 10 ml PRN PRN Administration NEEDED PER PROVIDER ORDERS Sodium Chloride 10 ml 08/31/21 17:00 09/06/21 16:55 Sodium Chloride Flush 0.9% 10 Ml Syringe IVP 10 ml 0100,0900,1700 LUCIANO Administration Sodium Chloride 10 ml 09/02/21 01:00 09/06/21 16:55 Sodium Chloride Flush 0.9% 10 Ml Syringe IVP Not Given 0100,0900,1700 LUCIANO Zinc Sulfate 220 mg 09/03/21 09:00 09/06/21 11:12 Zinc Sulfate 220 Mg Capsule PO 09/07/21 09:01 220 mg DAILY LUCIANO Administration - Lab Result Fish Bone Diagrams: 09/07/21 05:40 09/07/21 05:40 - Additional Planning My Orders: My Active Orders 09/06/21 10:47 IS [Incentive Spirometry - RT] [RC] .TID 09/06/21 17:27 IS [Incentive Spirometry - RT] [RC] TID Miscellaenous Nursing Order [RC] QSHIFT Subjective - Subjective Patient Reports: Fatigue, Shortness of Breath Nursing Reports: Other (Per RT, he desaturates with activity like transfering (independantly) from bed to chair, recovers in several minutes) Objective Vital Signs: Vital Signs - 24 hr 09/05/21 09/05/21 09/05/21 20:20 20:21 20:29 Temperature 36.3 C L Heart Rate [ 75 Monitoring electrodes] Respiratory 18 18 Rate Blood Pressure 143/78 H [Left Brachial artery] Blood Pressure [Right Brachial artery] O2 Saturation 95 95 93 09/06/21 09/06/21 09/06/21 01:00 04:44 05:50 Temperature 36.7 C 36.8 C Heart Rate [ 73 72 Monitoring electrodes] Respiratory 16 14 Rate Blood Pressure 134/79 H [Left Brachial artery] Blood Pressure 119/75 [Right Brachial artery] O2 Saturation 94 98 94 09/06/21 09/06/21 09/06/21 09:40 14:04 17:00 Temperature 36.8 C 37.4 C 37.0 C Heart Rate [ 82 88 103 H Monitoring electrodes] Respiratory 16 18 20 Rate Blood Pressure [Left Brachial artery] Blood Pressure 122/70 117/76 134/75 H [Right Brachial artery] O2 Saturation 93 92 91 L Oxygen O2 Source [facility] Oxygen Flow Rate 15 I&O (Last 24 Hrs): Intake and Output Totals x24h 09/04/21 09/05/21 09/06/21 23:59 23:59 23:59 Intake Total 4030 3840 1560 Output Total 2725 2530 2775 Balance 1305 1310 -1215 General: Alert, Oriented x3 HEENT: Mucous membr. moist/pink, Other (NOATAK) Neck: Supple, No JVD Neuro: Alert, Non Focal Cardiovascular: Regular rate, No murmurs Respiratory: Rales (L base posteriorly) Abdomen: Normal bowel sounds, Soft Extremities: No edema - Results Results: Laboratory Results WBC 12.5 x10^3/uL (4.8-10.8) H 09/06/21 05:40 RBC 4.89 10^6/uL (4.70-6.10) 09/06/21 05:40 Hgb 14.4 g/dL (14.0-18.0) 09/06/21 05:40 Hct 42.0 % (42.0-52.0) 09/06/21 05:40 MCV 85.9 fL (80.0-94.0) 09/06/21 05:40 MCH 29.4 pg (27.0-31.0) 09/06/21 05:40 MCHC 34.3 g/dL (32.0-36.0) 09/06/21 05:40 RDW 12.1 % (12.0-15.0) 09/06/21 05:40 Plt Count 310 10^3/uL (130-450) 09/06/21 05:40 MPV 10.1 fL (7.4-11.4) 09/06/21 05:40 Neut # (Auto) Not Reportable 09/06/21 05:40 Lymph # (Auto) Not Reportable 09/06/21 05:40 Wayne # (Auto) Not Reportable 09/06/21 05:40 Eos # (Auto) Not Reportable 09/06/21 05:40 Baso # (Auto) Not Reportable 09/06/21 05:40 Absolute Nucleated RBC Not Reportable 09/06/21 05:40 Total Counted 100 09/06/21 05:40 Band Neuts % (Manual) 5 % (0-10) 09/06/21 05:40 Reactive Lymphs % (Man) 2 % 09/06/21 05:40 Abnorm Lymph % (Manual) 0 % 09/06/21 05:40 Myelocytes % 1 % (-0) H 09/04/21 04:58 Nucleated RBC % Not Reportable 09/06/21 05:40 Neutrophils # (Manual) 10.3 10^3/uL (1.5-6.6) H 09/06/21 05:40 Lymphocytes # (Manual) 1.4 10^3/uL (1.5-3.5) L 09/06/21 05:40 Monocytes # (Manual) 0.4 10^3/uL (0.0-1.0) 09/06/21 05:40 Eosinophils # (Manual) 0.5 10^3/uL (0-0.7) 09/06/21 05:40 Basophils # (Manual) 0.0 10^3/uL (0-0.1) 09/06/21 05:40 Differential Comment MANUAL DIFFERENTIAL 09/06/21 05:40 Manual Slide Review Indicated 08/31/21 10:33 WBC Morphology NORMAL APPEARANCE (NORMAL) 09/05/21 05:19 Platelet Estimate NORMAL (130-450,000) (NORMAL) 09/06/21 05:40 Platelet Morphology 1+ GIANT PLATELETS (NORMAL) 09/06/21 05:40 RBC Morph Micro Appear NORMAL APPEARANCE (NORMAL) 09/06/21 05:40 PT 13.1 secs (9.9-12.6) H 08/31/21 10:33 INR 1.2 (0.8-1.2) 08/31/21 10:33 Bld Gas Analysis Time 0725 09/02/21 07:15 Sample Site RIGHT RADIAL 09/02/21 07:15 ABG pH 7.55 (7.35-7.45) H 09/02/21 07:15 ABG pCO2 30 mmHg (34-45) L 09/02/21 07:15 ABG pO2 74 mmHg (80-100) L 09/02/21 07:15 ABG HCO3 25.7 mmol/L (22.0-26.0) 09/02/21 07:15 ABG Total CO2 26.6 MMOL/L (21.0-29.0) 09/02/21 07:15 ABG O2 Saturation 95 % (94-98) 09/02/21 07:15 ABG Base Excess 4.0 mmol/L (-2.0-3.0) H 09/02/21 07:15 Denis Test POSITIVE 09/02/21 07:15 O2 Delivery Device BiPAP 09/02/21 07:15 FiO2 100.00 09/02/21 07:15 EPAP 5 cmH2O 09/02/21 07:15 IPAP 12 cmH2O 09/02/21 07:15 Sodium 133 mmol/L (135-145) L 09/06/21 05:40 Potassium 3.9 mmol/L (3.5-5.0) 09/06/21 05:40 Chloride 91 mmol/L (101-111) L 09/06/21 05:40 Carbon Dioxide 31 mmol/L (21-32) 09/06/21 05:40 Anion Gap 11.0 (6-13) 09/06/21 05:40 BUN 28 mg/dL (6-20) H 09/06/21 05:40 Creatinine 0.8 mg/dL (0.6-1.2) 09/06/21 05:40 Estimated GFR (MDRD) 98 (>89) 09/06/21 05:40 Glucose 93 mg/dL (70-100) 09/06/21 05:40 Calcium 8.7 mg/dL (8.5-10.3) 09/06/21 05:40 Phosphorus 3.9 mg/dL (2.5-4.6) 09/05/21 05:19 Magnesium 2.6 mg/dL (1.7-2.8) 09/05/21 05:19 Total Bilirubin 0.9 mg/dL (0.2-1.0) 08/31/21 10:33 AST 36 IU/L (10-42) 08/31/21 10:33 ALT 36 IU/L (10-60) 08/31/21 10:33 Alkaline Phosphatase 64 IU/L (42-121) 08/31/21 10:33 Total Protein 7.2 g/dL (6.7-8.2) 08/31/21 10:33 Albumin 3.7 g/dL (3.2-5.5) 08/31/21 10:33 Globulin 3.5 g/dL (2.1-4.2) 08/31/21 10:33 Albumin/Globulin Ratio 1.1 (1.0-2.2) 08/31/21 10:33 Lipase 59 U/L (22-51) H 08/31/21 10:33 25-OH Vitamin D Total 60 ng/mL (30-100) 08/31/21 14:58 Nasal Adenovirus (PCR) NOT DETECTED 08/31/21 09:12 Nasal B. parapertussis DNA (PCR) NOT DETECTED 08/31/21 09:12 Nasal Coronavir 229E PCR NOT DETECTED 08/31/21 09:12 Nasal Coronavir HKU1 PCR NOT DETECTED 08/31/21 09:12 Nasal Coronavir NL63 PCR NOT DETECTED 08/31/21 09:12 Nasal Coronavir OC43 PCR NOT DETECTED 08/31/21 09:12 Nasal Enterovir/Rhinovir PCR NOT DETECTED 08/31/21 09:12 Nasal Influenza B PCR NOT DETECTED 08/31/21 09:12 Nasal Influenza A PCR NOT DETECTED 08/31/21 09:12 Nasal Parainfluen 1 PCR NOT DETECTED 08/31/21 09:12 Nasal Parainfluen 2 PCR NOT DETECTED 08/31/21 09:12 Nasal Parainfluen 3 PCR NOT DETECTED 08/31/21 09:12 Nasal Parainfluen 4 PCR NOT DETECTED 08/31/21 09:12 Nasal RSV (PCR) NOT DETECTED 08/31/21 09:12 Nasal Screen MRSA (PCR) NEGATIVE (NEGATIVE) 09/01/21 20:00 Nasal B.pertussis DNA PCR NOT DETECTED 08/31/21 09:12 Nasal C.pneumoniae (PCR) NOT DETECTED 08/31/21 09:12 Amanuel Human Metapneumo PCR NOT DETECTED 08/31/21 09:12 Nasal M.pneumoniae (PCR) NOT DETECTED 08/31/21 09:12 Nasal SARS-CoV-2 (PCR) DETECTED A 08/31/21 09:12
[2021-09-07] MEDS: SODIUM CHLORIDE FLUSH 0.9% 10 ML SYRINGE IVP SCH ×4 (03:02→08:23)
[2021-09-07] MEDS ORDERED: BENZOCAINE/MENTHOL LOZENGE MM PRN (03:04)
[2021-09-07 05:52] LABS: BASOPHILS % (AUTO) 0.1 %; EOSINOPHILS # (AUTO) 0.3 10^3/uL (0.0-0.7); HCT - HEMATOCRIT 42.3 % (42.0-52.0); HGB - HEMOGLOBIN 14.5 g/dL (14.0-18.0); LYMPHOCYTES # (AUTO) 1.5 10^3/uL (1.5-3.5); LYMPHOCYTES % (AUTO) 11.3 %; MEAN CORPUSCULAR HEMOGLOBIN 29.4 pg (27.0-31.0); MEAN CORPUSCULAR HGB CONC 34.3 g/dL (32.0-36.0); MEAN CORPUSCULAR VOLUME 85.8 fL (80.0-94.0); MEAN PLATELET VOLUME 10.1 fL (7.4-11.4); MONOCYTES % (AUTO) 7.4 %; NEUTROPHILS # (AUTO) 10.4 10^3/uL (1.5-6.6); PLT - PLATELET COUNT 330 10^3/uL (130-450); RED BLOOD COUNT 4.93 10^6/uL (4.70-6.10); RED CELL DISTRIBUTION WIDTH 12.3 % (12.0-15.0); WHITE BLOOD COUNT 13.6 x10^3/uL (4.8-10.8)
[2021-09-07 06:14] LABS: CREATININE 0.8 mg/dL (0.6-1.2); POTASSIUM 3.9 mmol/L (3.5-5.0)
[2021-09-07] MEDS: polyethylene glycoL 3350 17 GM PACKET PO SCH (08:21)
[2021-09-07] MEDS: CHOLECALCIFEROL 5,000 UNIT CAPSULE PO SCH (08:22)
[2021-09-07] MEDS: DEXAMETHASONE 4 MG/ML VIAL IVP SCH (08:22)
[2021-09-07] MEDS: ENOXAPARIN 40 MG/0.4 ML SYRINGE SUBQ SCH (08:22)
[2021-09-07] MEDS: ZINC SULFATE 220 MG CAPSULE PO SCH (08:23)
[2021-09-07] MEDS: ASCORBIC ACID 500 MG TABLET PO SCH (08:23)
--- NOTE | 2021-09-07 11:46 | Discharge Plan ---
Discharge Plan Problem Reviewed?: Yes Disposition: Home, Self Care Condition: Stable Diet: Low Sodium Activity Restrictions: Activity as Tolerated Shower Restrictions: No Driving Restrictions: No Instruction Topics: Oxygen Home Use Health Concerns: You were admitted to be treated for Covid pneumonia, and even needed intensive care unit management for a while because of severe respiratory compromise. You are being discharged and need home oxygen. The Medical Records Administrator has reviewed this with you. I am ordering oxygen set at 2 L/min continuously, at rest and with activity, to maintain your oxygen levels in a safe range. Please see your primary care provider for a hospital follow-up visit, and it will be determine when your oxygen could be discontinued. You may resume all your usual prescription medications as you took previously. Plan of Treatment: As above. Care Goals: Improvement in symptoms and stabilization are the goals. Assessment: Patient understands and is agreeable with the plan. No Smoking: If you smoke, Please STOP! Call for help. Follow-up with: Roseann Rayo PA [Provider Admit Priv/Credential] -
--- NOTE | 2021-09-07 12:06 | DISCHARGE SUMMARY ---
Discharge Summary Admit Date: 08/31/21 Discharge Date: 09/07/21 Discharging Provider: Dr Kaitlin Alarcon Primary Care Provider: KAZ Rayo Code Status: Attempt Resuscitation Condition at Discharge: Stable Discharge Disposition: 01 Home, Self Care - [facility] History of Present Illness: From the admission H&P of Dr. Donna Paz: Patient is a 61-year-old white male with medical history significant for hypertension who presented to the ED with complaint of dyspnea and hypoxia. He was diagnosed with Covid 4 days ago and has been managing at home through that time. However today he became significantly dyspneic and hypoxic with his oxygen saturation dropping into the 80%s on room air. His became concerned and so EMS was called. Upon arrival, the patient's oxygen saturation was 80% on room air. He required a nonrebreather mask for his oxygen to come up to the mid 90s. At bedside, he denies chest pain but reports dyspnea. He denies abdominal pain, nausea, vomiting. He had been experiencing a low-grade temperature at home. He is unvaccinated (for COVID). He is refusing to get Remdesivir. - HOSPITAL COURSE Hospital Course: (1) Acute respiratory failure with hypoxia This was secondary to COVID-19 pneumonia. He required supplemental oxygen, including aggressive management in the ICU for several days. On the last 3 days of hospitalization he had improvement in his O2 needs, dropping below 20L/min and could be discharged. On the day of discharge she underwent an oximetry walk test with respiratory therapy: The patient was hypoxic at rest on room air, with O2 sats 87%. On O2 at 2 L/min nasal cannula at rest, his O2 sats were 93%. With exertion on 2 L/min nasal cannula, his O2 sats were 90%. I am ordering home oxygen, 2 L/min continuously to treat his COVID-19 and resulting hypoxemia. (2) Pneumonia due to COVID-19 virus Patient required escalating amounts of FiO2, up to 100% flowing at 40 L and even BIPAP in the ICU. He was started on iv Dexamethasone and he completed empiric azithromycin and Rocephin. He refused treatment with Remdesivir. He requested and was put on supplemental zinc, vitamin C and vitamin D. Tablets of ivermectin were confiscated from patient's room and taken to the pharmacy for safekeeping. (3) Hypertension He was on losartan at home, not continued here due to "soft" BPs. It may be restarted at home. - ALLERGIES Allergies/Adverse Reactions: Allergies Allergy/AdvReac Type Severity Reaction Status Date / Time No Known Drug Allergies Allergy Verified 08/31/21 09:02 - MEDICATIONS Home Medications: Ambulatory Orders Medication Instructions Recorded Confirmed Losartan [Cozaar] 50 mg PO DAILY 09/03/21 09/03/21 - PHYSICAL EXAM AT DISCHARGE General Appearance: positive: No acute distress, Alert Eyes Bilateral: positive: Normal inspection, EOMI ENT: positive: ENT inspection nml, No signs of dehydration Neck: positive: Nml inspection, No JVD Respiratory: positive: Other (L sided crackles posteriorly) Cardiovascular: positive: Regular rate & rhythm, No murmur Abdomen: positive: Non-tender, No distention Skin: positive: Warm, Dry Extremities: positive: Non-tender, No pedal edema Neurologic/Psychiatric: positive: Oriented x3 (Non-focal) - LABS Result Diagrams: 09/07/21 05:40 09/07/21 05:40 - DIAGNOSTIC IMAGING Diagnostic Imaging Results: Final report reviewed - FOLLOW UP Follow Up: See PCP, KAZ Isabel in 1-2 weeks for a hospital follow-up visit and to determine if home O2 may be discontinued. - TIME SPENT Time Spent in Discharge (Minutes): 30
[2021-09-07 13:31] VITALS: BP 118/72
== END 2021-09-07 13:51 | disposition home or self-care (01) | DRG 177 ==
LOC: EDUNIT# → ED 08:42 → MS2 12:19 → ICU 09-01 19:45 → MS2 09-05 15:25
PROVIDERS: ADMIT Internal Medicine; ATTEND Internal Medicine
PROC: 3E0333Z Introduction of Anti-inflammatory into Peripheral Vein, Percutaneous Approach (ICD-10-PCS; principal; 2021-09-01)
DX: U07.1 COVID-19 (principal); J12.82 Pneumonia due to coronavirus disease 2019; J96.01 Acute respiratory failure with hypoxia; G47.33 Obstructive sleep apnea (adult) (pediatric); I10 Essential (primary) hypertension; Z53.29 Procedure and treatment not carried out because of patient's decision for other reasons; Z96.653 Presence of artificial knee joint, bilateral; Z99.81 Dependence on supplemental oxygen; Z79.899 Other long term (current) drug therapy
CPT/HCPCS: 0202U; 36415; 36600; 71045; 80048; 80053; 82306; 82803; 83690; 83735; 84100; 85025; 85610; 87150; 94640; 94660; 96365; 99284; 99285; A9270; J1650; J2060